=== PATIENT | male | born 1935 | race Caucasian/White ===

== ENCOUNTER 2018-12-18 04:41 | Observation (INO) | payer OTHER ==
[~2018-12-18] VITALS: Ht 185.4 cm; Wt 88.2 kg
--- NOTE | ~2018-12-18 | OP ---
PATIENT NAME: JESUS GIORDANO MEDICAL RECORD: [id number] :39 LOCATION:D.M2 D.2121 ADMISSION DATE:12/18/18 SURGEON: NATALIA SOARES MD DATE OF OPERATION: 12/20/2018 PROCEDURES: 1. Aortofemoral runoff. 2. Abdominal aortography. INDICATION: Claudication and peripheral vascular disease. PROCEDURE PERFORMED: After informed consent was obtained and after a detailed description of risks, benefits as well as alternative therapies, the patient elected to proceed with angiogram and aortofemoral runoff. The left femoral area had a preexisting sheath. All catheters exchanged through this sheath. FINDINGS: Abdominal aortography was performed. The catheter was pulled down for aortofemoral runoff. Abdominal aortography reveals no significant abdominal aortic disease, no dissection or aneurysm formation. RIGHT LEG: A. Iliac: The common internal and external iliacs have mild irregularities, but no flow-limiting stenosis. 2. Femoral system: The common superficial and deep femoral have mild irregularities, but no flow-limiting stenosis. C. Popliteal and infrapopliteal vessels are widely patent with good 3-vessel runoff to the foot. LEFT LEG: A. Iliac: The common internal and external iliacs have mild irregularities. B. Femoral system: The common and deep femoral are widely patent. Superficial femoral has 80% stenosis in mid vessel. C. Popliteal and infrapopliteal vessels are widely patent with good 3-vessel runoff to the foot. 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 TRANSINT:[id number] Voice Confirmation ID: [id number] DOCUMENT ID: [id number] NATALIA SOARES MD CC: [id number] DICTATION DATE: 12/20/18936 SUPERVISOR AREA: 12/20/18 1225 ADM IN [id number] [place] [address]
--- NOTE | ~2018-12-18 | EC ---
PATIENT:JESUS GIORDANO DATE OF SERVICE: 12/18/18 SEX: M MEDICAL RECORD: [id number] DATE OF : 39 LOCATION:D.M2 D.212 AGE OF PATIENT: 83 ADMISSION DATE: 12/18/18 REFERRING PHYSICIAN: INTERPRETING PHYSICIAN: NATALIA MENDEZ MD ECHOCARDIOGRAM REPORT ECHO CHARGES 4 ECHO COMPLETE Date: 12/18/18 CLINICAL DIAGNOSIS: PR ECHOCARDIOGRAPHIC MEASUREMENTS (adult normal given) AC root (d.<3.7cm) 3.5 cm LV Septum d (<1.2 cm> 1.3 cm Valve Excursion 1.4 cm LV Septum (systole) 1.7 cm Left Atria (s.<4.0cm> 3.9 cm LVPW d(<1.2cm) 1.5 cm RV (d.<2.3cm) 2.5 cm LVPW (sytole) 1.7 cm LV diastole(<5.6CM) 5.8 cm MV E-F(>70mm/sec) cm LV systole 4.9 cm LVOT Diameter 1.6 cm MV exc.(>10mm) cm Est.ejection fraction (50-75%) % DOPPLER: LVIT cm/sec A 79 cm/sec E 65 cm/sec LA cm/sec RVSP 16.2 mmHg LVOT 59 cm/sec AOP1/2T m/s Asc. Ao 103 cm/sec RVOT 59 cm/sec RA cm/sec PA 55 cm/sec AV Gradient Peak 4.2 mmHg AV Mean 2.5 mmHg AV Area 1.2 cm MV Gradient Peak 2.3 mmHg MV Mean 1.1 mmHg MV Area cm COMMENTS: Service Line Coordinator: [facility] Office Services Manager: 1 Dr. Mendez TAPE# PACS Pericardial Effusion N DATE OF SERVICE: FINDINGS: 1. Left ventricular chamber size is within normal limits. Left ventricular systolic function is normal. Overall ejection fraction is estimated at 50%. 2. Left atrium is within normal limits. Right atrium and right ventricular chamber sizes are mildly dilated. 3. Valvular structures have normal structure and motion. 4. Doppler interrogation reveals mild aortic insufficiency and mild mitral regurgitation. No other valvular insufficiency or stenosis. ECHOCARDIOGRAM REPORT [id number] JESUS GIORDANO 5. No evidence of pericardial effusion. 6. Left ventricular apex has a definite thrombus. TRANSINT:[id number] Voice Confirmation ID: [id number] DOCUMENT ID: [id number] NATALIA MENDEZ MD CC: [id number] DICTATION DATE: 12/18/18 1146 ENGINEER AND GEOLOGIST: 12/18/18 1214 ADM IN [place] [place] [address]
--- NOTE | ~2018-12-18 | HP ---
PATIENT: JESUS GIORDANO MEDICAL RECORD: [id number] ACCOUNT: [id number] LOCATION:[address] : 39 ADMISSION DATE: 12/18/18 PCP: SUSIE DELEON MD HISTORY AND PHYSICAL EXAMINATION DIAGNOSES: 1. Non-Q-wave myocardial infarction. 2. Coronary artery disease. 3. Hypertension. 4. Hyperlipidemia. HISTORY OF PRESENT ILLNESS: Mr. Giordano presents with chest pain. He presented to [facility] with chest pain 1 month ago, underwent cardiac catheterization by Dr. Tenorio, was told that he needs bypass surgery. No stenting was attempted. He saw Dr. Hunt. He was somehow turned down for bypass surgery. There was a question of whether he was afebrile at that time. He has continued to have chest pain. He presents here in the middle of the night with severe chest pain. His troponin is approximately 3. He is pain free at this time. PHYSICAL EXAMINATION: GENERAL APPEARANCE: Well-nourished, well-developed, appears stated age. Level of distress, comfortable. PSYCHIATRIC: Mental status, alert, normal affect. Orientation, oriented to time, place and person. EYES: Lids and conjunctiva, noninjected. No discharge, no pallor. ENT: Lips, teeth, gums, normal dentition. Oropharynx, no cyanosis, no pallor. NECK: Carotid arteries, bilateral normal upstroke, no bruits, no thrills. JUGULAR VEINS: No jugular venous pressure or distention. CERVICAL LYMPH NODES: Nontender, nonenlarged. THYROID: Not enlarged. Nontender. No nodules. LUNGS: Respiratory effort, unlabored. CHEST: Normal curvature. No thoracic deformity. No chest wall tenderness. Percussion, resonant. Auscultation, clear. No wheezes, no rales, no rhonchi. CARDIOVASCULAR: Precordial exam, nondisplaced. No heaves or pericardial thrills. Rate and rhythm, regular. Heart sounds, normal S1, normal S2. No S3, no gallop, no rub. Systolic murmur, not heard. Diastolic murmur, not heard. EXTREMITIES: No cyanosis, no edema. Peripheral pulses, full and equal in all extremities, except as noted. No bruits appreciated. ABDOMEN: Soft, nondistended. Normal aorta. No bruit. Nontender. No masses. Liver, nontender, no hepatomegaly. Spleen, nontender, no splenomegaly. MUSCULOSKELETAL: No joint tenderness. No joint swelling. No erythema. NEUROLOGICAL: Normal gait, normal strength, normal tone. SKIN: Warm and dry. OVERALL IMPRESSION: Non-Q-wave myocardial infarction and coronary artery disease. He wants to avoid heart surgery if at all possible. We will plan for repeat cardiac catheterization with hopes of transcatheter revascularization here. TRANSINT:[id number] Voice Confirmation ID: [id number] DOCUMENT ID: [id number] HISTORY AND PHYSICAL [id number] JESUS GIORDANO JEFFREY MD CC: [id number] DICTATION DATE: 12/18/18755 MEDICAL CENTER DIRECTOR: 12/18/18 0818 ADM IN [facility] [address] [id number]
--- NOTE | ~2018-12-18 | HEMODYNAMI ---
PATIENT:JESUS GIORDANO MEDICAL RECORD: [id number] : 39 LOCATION[facility] [id number] ADMISSION DATE: 12/18/18 Generatedon:12/20/20189:38 Patient name: JESUS GIORDANO Patient #: [id number] SSN: : 1935 Date of study: 12/20/2018 Page: Of Hemodynamic Procedure Report Patient Data Patient Demographics Procedure consent was obtained First Name: JESUS Gender: Male Last Name: GIULIANA : 1935 [facility] Initial: Arvin Age: 83 year(s) Patient #: [id number] Race: Unknown Additional ID: [id number] Contact details Address: [address] [place] [address] [facility] State: [place] City: [place] Zip code: [address] Past Medical History Allergies: No known allergies Admission Admission Data Admission Date: 12/18/2018 Admission Time: 6:16 Room #: D.2121 Height (in.): 73 BSA: 2.37 (m2) Height (cm.): 185.42 BMI: 33.04 (kg/m2) Weight (lbs.): 250.45 Weight (kg.): 113.6 Lab Results Lab Result Date: 12/20/2018 Lab Result Time: 0:00 Biochemistry Name Units Result Min Max BUN mg/dl 19 --(----)*- 7 18 Creatinine mg/dl 2.2 --(----)-* 0.6 1.3 CBC Name Units Result Min Max Hematocrit % 40.2 -*(----)-- 42 54 Hemoglobin g/dl 13.2 -*(----)-- 13.5 17.5 Procedure Procedure Types Cath Procedure PCI Procedure Coronary Stent Coronary Stent Initial Peripheral Cath Diagnostic Procedure Commercial Lending Assistant Peripheral Procedures Etnww-Olfaigk-Oqf-Off Procedure Description Procedure Date Procedure Date: 12/20/2018 Procedure Start Time: 9:23 Procedure End Time: 9:34 Procedure Staff Name Function Fran Mendez MD Performing Physician Kristian Rodriguez RT Monitor Trina Wiley RT Scrub Krishan Lao RN Nurse Kenan Hunt RN Avionics Technician Tam Gomes RN Nurse Procedure Data Cath Procedure Fluoroscopy Diagnostic fluoroscopy Total fluoroscopy Time: 2.3 time: 2.3 min min Diagnostic fluoroscopy Total fluoroscopy dose: 460 dose: 460 mGy mGy Contrast Material Contrast Material Type Amount (ml) Isovue 300 65 Entry Location Entry Primary Successful Side Size Upsize Upsize Entry Closure Succes sful Closure Location (Fr) 1 (Fr) 2 (Fr) Remarks Device Remarks Femoral Left 6 Fr Exoseal artery Short Estimated blood loss: 10 ml Diagnostic catheters Device Type Used For End Catheter Placement DIAGNOSTIC Pigtail 5Fr Procedure catheter ([id number]) Procedure Complications No complications Procedure Medications Medication Administration Route Dosage 0.9% NaCl I.V. 100 ml/hr Oxygen etCO2 Nasal cannula 4 l/min Heparin Flush Bag added to field 2 bags (1000units/500ml NS) Lidocaine 2% added to field 20 Plavix P.O. 75 mg Versed I.V. 0.5 mg Fentanyl I.V. 50 mcg Heparin Bolus I.V. 4000 units Hemodynamics Rest BSA: 2.37 (m2) HGB: 13.2 (g/dl) O2 Consumption: Estimated: 276.27 (ml/min) O2 Co nsumption indexed: Estimated:116.57 (ml/min/m) Heart Rate: 77 (bpm) Snapshots Pre Cath Intra NCS Post Cath Vital Signs Time Heart Resp SPO2 etCO2 NIBP (mmHg) Rhythm Pain Sedation Rate (ipm) (%) (mmHg) Status Level (bpm) 8:58:49 68 16 91 0 171/94(147) NSR 0 (11) 10(A) , No pain 9:03:05 79 18 90 22.7 164/102(137) NSR 0 (11) 10(A) , No pain 9:07:19 78 19 92 12.1 164/98(144) NSR 0 (11) 10(A) , No pain 9:11:33 76 18 92 0 174/97(138) NSR 0 (11) 10(A) , No pain 9:15:51 77 21 93 10.6 167/98(136) NSR 0 (11) 10(A) , No pain 9:20:07 78 22 92 10.5 169/99(146) NSR 0 (11) 10(A) , No pain 9:24:23 75 21 91 9.8 167/93(141) NSR 0 (11) 10(A) , No pain 9:28:39 74 32 92 0 165/111(141) NSR 0 (11) 9(A) , No pain 9:32:55 75 19 90 0 172/93(141) NSR 0 (11) 9(A) , No pain Medications Time Medication Route Dose Verified Delivered Reason Notes Effectiveness by by 9:02:47 0.9% NaCl I.V. 100 Tam Tam Per physician ml/hr Mireya Gomes RN RN 9:03:01 Oxygen etCO2 4 Tam Tam for low 02 sats Nasal l/min Mireya Gomes cannula RN RN 9:03:11 Heparin Flush added 2 Tam Tam used for Bag to bags Mireya Gomes procedure (1000units/500ml RN RN NS) 9:03:22 Lidocaine 2% added 20ml Tam Tam for local to vial Mireya Gomes anesthetic field RN RN 9:09:41 Plavix P.O. 75 mg Tam Tam for Mireya Gomes antiplatelet RN RN therapy 9:19:41 Versed I.V. 0.5 Tam Tam for sedation mg Mireya Gomes RN RN 9:19:50 Fentanyl I.V. 50 Tam Tam for sedation mcg Mireya Gomes RN RN 9:24:49 Heparin Bolus I.V. 4000 Tam Tam for units Mireya Gomes anticoagulation RN graduate student instructor Log Time Note 8:25:45 Signed procedure consent form obtained from patient. 8:25:47 Diagnostic Cath status Elective 8:25:47 Time tracking: Regular hours (M-F 7:00 - 5:00) 8:25:51 Plan of Care:Hemodynamics will remain stable., Cardiac rhythm will remain stable., Comfort level will be maintained., Respiratory function will remain adequate., Patient/ family verbilizes understanding of procedure., Procedure tolerated without complication., Recovers from procedure without complications.. 8:26:04 Patient Height : 73 inches 8:26:13 Patient Weight : 250.45 lbs 8:27:01 Lab Result : BUN 19 mg/dl 8:27:01 Lab Result : Creatinine 2.2 mg/dl 8:27:01 Lab Result : Hematocrit 40.2 % 8:27:01 Lab Result : Hemoglobin 13.2 g/dl 8:36:15 Kristian Jennifer RT(R) sent for patient. Start room use. 8:37:17 Patient allergic to No known allergies 8:46:19 Patient received from Med II to CCL 2 Alert and oriented. Tansferred to table in Supine position. 8:46:21 Warm blankets applied, and ashish hugger turned on for patient comfort. 8:46:22 Correct patient and procedure confirmed by team. 8:46:23 ECG and BP/O2 sat monitors applied to patient. 8:57:43 Vital chart was started 9:02:47 0.9% NaCl 100 ml/hr I.V. was administered by Tam Gomes RN; Per physician; 9:03:01 Oxygen 4 l/min etCO2 Nasal cannula was administered by Tam Gomes RN; for low 02 sats; 9:03:11 Heparin Flush Bag (1000units/500ml NS) 2 bags added to field was administered by Tam Gomes RN; used for procedure; 9:03:22 Lidocaine 2% 20ml vial added to field was administered by aTm Gomes RN; for local anesthetic; 9:06:40 Baseline sample Acquired. 9:06:48 Rhythm: sinus rhythm 9:06:50 Full Disclosure recording started 9:07:08 H&P Date Dictated: 12/18/2018 Within 30 days and on chart.. 9:07:10 Pre-procedure instructions explained to patient. 9:07:10 Pre-op teaching completed and patient verbalized understanding. 9:07:11 Family in patients room. 9:07:14 Patient NPO since Midnight. 9:07:18 Is the patient allergic to Iodine/contrast media? No. 9:07:19 Is patient on blood thinner?Yes 9:07:21 ACC The patient was administered the following blood thiners within the last 24 hours: ACCPlavix 9:07:28 Patient diabetic? No. 9:07:30 Previous problem with sedation/anesthesia? No ? 9:07:31 Snore? Yes 9:07:32 Sleep apnea? No 9:07:33 Deviated septum? No 9:07:34 Opens mouth fully? Yes 9:07:35 Sticks out tongue? Yes 9:07:37 Airway obstruction? No ? 9:07:40 Dentures? Yes IN TIGHT 9:07:44 Pre procedure: left dorsailis pedis pulse Doppler 9:07:46 Patient pain scale 0/10 ?. 9:07:51 IV patent on arrival in right antecubital with 0.9% NaCl at [facility]. 9:07:53 Lab results completed and on chart. 9:07:56 Left groin area was prepped with chlora-prep and draped in sterile fashion 9:07:56 Alarms reviewed by R. N. 9:07:57 Sharps counted by scrub and verified by R.N. 9:08:00 ACIST Syringe (88038) opened to sterile field. 9:08:00 Bag Decanter (2002S) opened to sterile field. 9:08:00 Medline Cath Pack ([id number]) opened to sterile field. 9:08:02 ACIST Hand Control (74319) opened to sterile field. 9:08:02 ACIST Manifold (53099) opened to sterile field. 9:08:03 Tegaderm 4 x 4 (1626W) opened to sterile field. 9:08:05 DIAGNOSTIC WIRE .035 260cm J wire (702468) opened to sterile field. 9:08:20 CHOICE PT Extra Support 182cm wire ([id number]) opened to sterile field. 9:08:21 SHEATH 6FR Chicken (WAJ438) opened to sterile field. 9:08:21 INFLATOR Merit BasixCompak (RY7974) opened to sterile field. 9:09:41 Plavix 75 mg P.O. was administered by Tam Gomes RN; for antiplatelet therapy; 9:11:08 Zero performed for pressure channel P1 9:19:08 Physician arrived 9:19:09 --------ALL STOP TIME OUT------ 9:19:10 Final Timeout: patient, procedure, and site verified with staff and physician. All members of the team are in agreement. 9:19:13 Left groin site verified by team. 9:19:18 Maximum allowable Isovue 300 dose 258ml. Physician notified. (300ml for normal creatinines. For patients with creatinine of 1.7 or higher multiply weight(kg) x 5 divided by creatinine.) 9:19:21 Fire Safety Assessment: A--An alcohol-based skin anteseptic being used preoperatively., C--Open oxygen or nitrous oxide is being used., D--An ESU, laser, or fiber-optic light is being used. 9:19:32 Physical assessment completed. ASA score P 3 - A patient with severe systemic disease as per Fran Mendez MD. 9:19:41 Versed 0.5 mg I.V. was administered by Tam Gomes RN; for sedation; 9::50 Fentanyl 50 mcg I.V. was administered by Tam Gomes RN; for sedation; 9::55 Procedure started. 9::59 Local anesthetic to left femerol artery with Lidocaine 2% by Fran Mendez MD.INITIAL ACCESS ONLY 9:24:06 A 6 Fr Short sheath was inserted into the Left Femoral artery 9:24:49 Heparin Bolus 4000 units I.V. was administered by Tam Gomes RN; for anticoagulation; 9::53 GUIDE 6FR XBLAD 3.5 catheter ([id number]) opened to sterile field. 9:25:01 6 Fr XBLAD 3.5 guide catheter was inserted over the wire 9:26:48 CHOICE PT ES wire advanced. 9:27:36 Wire advanced across lesion. 9:28:33 Place stent Inflation Number: 1 A INTEGRITY RX 2.5 x 22 stent ([id number]) was prepped and advanced across the Prox LAD. The stent was deployed at 15 SUSHANT for 0:10 (min:sec). 9:28:54 Stent catheter was removed intact over wire. 9::55 Wire removed. 9:30:10 Guide catheter removed. 9:30:20 A DIAGNOSTIC Pigtail 5Fr catheter ([id number]) was advanced over the wire and used for Procedure. 9:30:31 Abdominal angiogram w/ runoff was performed. 9:31:09 Left leg runoff performed. 9:31:09 Right leg runoff performed. 9:31:12 Catheter removed. 9:31:42 EXOSEAL 6Fr (EX600) opened to sterile field. 9:31:51 Sheath removed intact; hemostasis achieved with Exoseal to the Left Femoral artery. 9:31:52 Procedure ended.(Physican Out) 9:32:01 Fluoroscopy time 02.30 minutes. 9:32:04 Flurop Dose total: 460 9:32:04 Fluoroscopy dose: 460 mGy 9:32:08 Contrast amount:Isovue 300 65ml. 9:32:09 Sharps counted by scrub and verified by R.N. 9:32:10 Insertion/operative site no bleeding no hematoma. 9:32:13 Post-op/insertion site Left Femoral artery dressed using a 4 x 4 and Tegaderm. 9:32:17 Post left femerol artery:stable, soft, clean and dry 9:32:18 Post Procedure Pulses reassessed and unchanged 9:32:20 Post-procedure physical assessment completed. ASA score P 3 - A patient with severe systemic disease as per Fran Mendez MD. 9:32:22 Post procedure rhythm: unchanged. 9:32:24 Estimated blood loss: 10 ml 9:32:25 Post procedure instruction explained to patient.Patient verbalizes understanding. 9:32:26 Patient needs reinforcement of post procedure teaching. 9:33:32 Procedure type changed to Cath procedure, PCI procedure, Coronary Stent, Coronary Stent Initial, Peripheral Cath Diagnostic Procedure, Commercial Lending Assistant Peripheral Procedures, Djybu-Wbkxwht-Pmt-Off 9:34:08 Procedure and supply charges have been captured, reviewed, submitted and are correct. 9:34:13 Procedure Complication : No complications 9:34:16 Vital chart was stopped 9:34:16 See physician's report for complete and final results. 9:34:28 Report given to PCU. 9:34:32 Patient transfered to PCU with Stretcher. 9:34:37 Procedure ended. 9:34:37 Full Disclosure recording stopped 9:34:43 End room use (Document Last) Intervention Summary Intervention Notes Time ActionType Lesion and Equipment Action# Pressure Duration Attributes Used 9:28:33 Place stent Prox LAD INTEGRITY RX 1 15 00:10 2.5 x 22 stent ([id number]) Device Usage Item Name Manufacture Quantity Catalog Number Hospital Part Current Mini [facility] Lot# / Charge Number Stock Stock Serial# Code ELAINA Acist 1 79298 379950 926082 893187 20 Syringe Medical (51897) Systems Inc Bag Decanter Microtek 1 952624 05189 267520 5 () Medical Inc. Medline Cath Medline 1 [id number] 305455 65123 771273 5 Pack ([id number]) ACIST Hand Acist 1 97631 931511 252315 942571 5 Control Medical (89469) Systems Inc ACIST Acist 1 96967 700792 950468 687880 5 Manifold Medical (14248) Systems Inc Tegaderm 4 x 3M 1 1626W 201792 270407 340484 5 4 (1626W) DIAGNOSTIC [facility] 1 610026 898876 869790 726642 30 WIRE .035 260cm J wire (393619) CHOICE PT [place] 1 [id number] 575502 608467 722607 5 Extra Scientific Support 182cm wire (3252742H2) SHEATH 6FR Terumo 1 [id number] 962329 054013 408189 40 Chicken (OQJ503) INFLATOR Merit 1 XY2930 308210 362870 616655 15 [facility] Medical BasixCompak (PQ2150) GUIDE 6FR Cardinal 1 [id number] 489214 356354 362368 10 XBLAD 3.5 Health catheter ([id number]) INTEGRITY RX Medtronic 1 [id number] 890729 142678 360339 5 [id number] 2.5 x 22 stent ([id number]) DIAGNOSTIC Cardinal 1 [id number] 753960 903593 281746 5 Pigtail 5Fr Health catheter (271586B) EXOSEAL 6Fr Cardinal 1 EX600 925940 984595 541260 10 (EX600) Health Signature Audit [place] Stage Time Signature Unsigned Intra-Procedure 12/20/2018 Kristian Rodriguez 9:38:43 AM RT(R) Signatures Monitor : Kristian Rodriguez RT Signature : Date : Time : [facility] [address] [place] [address]
--- NOTE | ~2018-12-18 | HEMODYNAMI ---
PATIENT:JESUS GIORDANO MEDICAL RECORD: [id number] : 39 [facility] [id number] ADMISSION DATE: 12/18/18 Generatedon:12/18/201813:32 Patient name: JESUS GIORDANO Patient #: [id number] SSN: : 1935 Date of study: 12/18/2018 Page: Of Hemodynamic Procedure Report Patient Data Patient Demographics Procedure consent was obtained First Name: JESUS Gender: Male Last Name: GIULIANA : 1935 [facility] Initial: G Age: 83 year(s) Patient #: [id number] Race: Unknown Additional ID: [id number] Contact details Address: [address] [place] [address] [facility] State: [place] City: [place] Zip code: [address] Past Medical History Allergies: No known allergies Admission Admission Data Admission Date: 12/18/2018 Admission Time: 6:16 Room #: D.2121 Lab Results Lab Result Date: 12/18/2018 Lab Result Time: 0:00 Biochemistry Name Units Result Min Max BUN mg/dl 20 --(----)*- 7 18 Creatinine mg/dl 2.1 --(----)-* 0.6 1.3 CBC Name Units Result Min Max Hemoglobin g/dl 13.5 --(*---)-- 13.5 17.5 Procedure Procedure Types Cath Procedure Diagnostic Procedure [facility] w/Coronaries PCI Procedure Coronary Stent Coronary Stent Initial Procedure Description Procedure Date Procedure Date: 12/18/2018 Procedure Start Time: 12:52 Procedure End Time: 13:27 Procedure Staff Name Function Pablo Aguillon RT Scrub Fran Mendez MD Performing Physician Pancho Summers RT Monitor Ayesha Evans RN Nurse Procedure Data Cath Procedure Fluoroscopy Diagnostic fluoroscopy Total fluoroscopy Time: time: 14.7 min 14.7 min Diagnostic fluoroscopy Total fluoroscopy dose: dose: 1517 mGy 1517 mGy Contrast Material Contrast Material Type Amount (ml) Isovue 300 199 Entry Location Entry Primary Successful Side Size Upsize Upsize Entry Closure Call ccessful Closure Location (Fr) 1 (Fr) 2 (Fr) Remarks Device Remarks Radial Right 6 Fr Mechanical artery Short Compression Femoral Right 6 Fr Exoseal artery Short Diagnostic catheters Device Type Used For End Catheter Placement DIAGNOSTIC [place] 110cm 5 Left Coronary Fr catheter ([id number]) Angiography DIAGNOSTIC AR2 MOD 5 Fr Right Coronary catheter ([id number]) Angiography DIAGNOSTIC AR2 MOD 5 Fr Right Coronary catheter ([id number]) Angiography Procedure Complications No complications Procedure Medications Medication Administration Route Dosage 0.9% NaCl I.V. 100 ml/hr Oxygen etCO2 Nasal cannula 2 l/min Lidocaine 2% added to field 20 Heparin Flush Bag added to field 2 bags (1000units/500ml NS) Radial Cocktail added to field 1 syringe (Verapomil 2mg/Nitro 400mcg/Heparin 1500units) Versed I.V. 2 mg Fentanyl I.V. 50 mcg Fentanyl I.V. 50 mcg Versed I.V. 2 mg Heparin Bolus I.V. 4000 units Integrilin (Bolus I.V. 10.2 ml 2mg/ml) Plavix P.O. 600 mg Hemodynamics Rest HGB: 13.5 (g/dl) Heart Rate: 76 (bpm) Pressure Samples Time Site Value (mmHg) Purpose Heart Use Rate(bpm) 12:55 LV 130/25,18 EDP 74 12:56 AO 138/79(106) Pullback 74 Gradients Valve Time Site Site 2 Mean SEP/DFP Peak To Heart Use 1 (mmHg) (sec/min) Peak Rate (mmHg) (bpm) Aortic 12:56 LV AO 74 138/79(106) Snapshots Pre Cath Intra NCS Post Cath Vital Signs Time Heart Resp SPO2 etCO2 NIBP (mmHg) Rhythm Pain Sedation Rate (ipm) (%) (mmHg) Status Level (bpm) 12:39:29 76 15 96 11 168/90(148) NSR 0 (11) 10(A) , No pain 12:43:54 73 14 98 13.6 162/97(134) NSR 0 (11) 10(A) , No pain 12:48:14 74 19 98 10.5 152/90(133) NSR 0 (11) 10(A) , No pain 12:52:34 72 15 97 14.3 160/93(134) NSR 0 (11) 10(A) , No pain 12:56:54 72 11 96 26 142/88(109) NSR 0 (11) 10(A) , No pain 13:01:12 74 11 97 29.5 151/90(120) NSR 0 (11) 9(A) , No pain 13:05:34 68 12 96 31.7 152/80(117) NSR 0 (11) 9(A) , No pain 13:09:52 67 11 97 43.1 155/89(122) NSR 0 (11) 9(A) , No pain 13:14:10 70 12 96 15.1 155/89(130) NSR 0 (11) 9(A) , No pain 13:18:29 75 14 96 27.2 144/86(119) NSR 0 (11) 9(A) , No pain 13:23:40 72 13 98 30.2 156/78(125) NSR 0 (11) 10(A) , No pain Medications Time Medication Route Dose Verified Delivered Reason Not es Effectiveness by by 12:38:21 0.9% NaCl I.V. 100 Fran Ayesha used for ml/hr Andrea Evans instructional systems specialist 12:38:28 Oxygen etCO2 2 l/min Fran Ayesha used for Nasal Andrea Evans procedure cannula RN 12:38:33 Lidocaine 2% added 20ml Fran Peters for local to vial Andrea Mendez MD anesthetic field 12:38:37 Heparin Flush added 2 bags Fran Peters used for Bag to Andrea Mendez MD procedure (1000units/500ml field NS) 12:38:48 Radial Cocktail added 1 Fran Peters used for (Verapomil to syringe Andrea Mendez MD procedure 2mg/Nitro field 400mcg/Hepari 12:49:49 Versed I.V. 2 mg Fran Ayesha for sedation Andrea Evans RN 12:49:55 Fentanyl I.V. 50 mcg Fran Ayesha for sedation Andrea Evans RN 12:58:11 Versed I.V. 2 mg Fran Ayesha for sedation Andrea Evans RN 12:58:49 Fentanyl I.V. 50 mcg Fran Ayesha for sedation Andrea Evans RN 13:20:26 Heparin Bolus I.V. 4000 Fran Ayesha for shital ified units Andrea Evans anticoagulation with Dr. DANIEL Mendez 13:20:42 Integrilin I.V. 10.2 ml Fran madrigal (Bolus 2mg/ml) Andrea Evans antiplatelet RN therapy 13:28:24 Plavix P.O. 600 mg Fran Hodge for Andrea Evans antiplatelet RN therapy Procedure Log Time Note 12:12:40 Pablo Aguillon RT(R) sent for patient. Start room use. 12:12:42 Time tracking: Regular hours (M-F 7:00 - 5:00) 12:12:46 Plan of Care:Hemodynamics will remain stable., Cardiac rhythm will remain stable., Comfort level will be maintained., Respiratory function will remain adequate., Patient/ family verbilizes understanding of procedure., Procedure tolerated without complication., Recovers from procedure without complications.. 12:28:21 Patient received from PCU to CCL 1 Alert and oriented. Tansferred to table in Supine position. 12:28:22 Warm blankets applied, and ashish hugger turned on for patient comfort. 12:28:23 Correct patient and procedure confirmed by team. 12:28:24 ECG and BP/O2 sat monitors applied to patient. 12:28:24 Signed procedure consent form obtained from patient. 12:38:12 Vital chart was started 12:38:21 0.9% NaCl 100 ml/hr I.V. was administered by Ayesha Evans RN; used for procedure; 12:38:28 Oxygen 2 l/min etCO2 Nasal cannula was administered by Ayesha Evans RN; used for procedure; 12:38:33 Lidocaine 2% 20ml vial added to field was administered by Fran Mendez MD; for local anesthetic; 12:38:37 Heparin Flush Bag (1000units/500ml NS) 2 bags added to field was administered by Fran Mendez MD; used for procedure; 12:38:48 Radial Cocktail (Verapomil 2mg/Nitro 400mcg/Heparin 1500units) 1 syringe added to field was administered by Fran Mendez MD; used for procedure; 12:45:33 Baseline sample Acquired. 12:45:36 Rhythm: sinus rhythm 12:45:37 Full Disclosure recording started 12:46:06 H&P Date Dictated: 12/18/2018 Within 30 days and on chart.. 12:46:07 Pre-procedure instructions explained to patient. 12:46:08 Pre-op teaching completed and patient verbalized understanding. 12:46:09 Family in patients room. 12:46:11 Patient NPO since Midnight. 12:46:21 Patient allergic to No known allergies 12:46:26 Is the patient allergic to Iodine/contrast media? No. 12:46:28 Was the patient premedicated? No 12:46:29 Is patient on blood thinner?No 12:46:34 Patient diabetic? Yes. 12:46:36 If diabetic: On Metformin? No 12:46:38 ----Pre-sedation anethsthesia assessment.---- 12:46:40 Previous problem with sedation/anesthesia? No ? 12:46:41 Snore? Yes 12:46:42 Sleep apnea? No 12:46:44 Deviated septum? No 12:46:45 Opens mouth fully? Yes 12:46:46 Sticks out tongue? Yes 12:46:49 Airway obstruction? No ? 12:46:53 Dentures? Yes in tight 12:47:00 Pre procedure: right dorsailis pedis pulse 1+ Palpable, but thready & weak; easily obliterated 12:47:08 Modified Aston's test Ulnar < 7 seconds 12:47:11 Patient pain scale 0/10 ?. 12:47:25 IV patent on arrival in left antecubital with 0.9% NaCl at 10ml/hr. 12:48:11 Lab Result : BUN 20 mg/dl 12:48:12 Lab Result : Hemoglobin 13.5 g/dl 12:48:12 Lab Result : Creatinine 2.1 mg/dl 12:48:14 Lab results completed and on chart. 12:48:19 Right Radial & Right Groin area was prepped with chlora-prep and draped in sterile fashion 12:48:20 Alarms reviewed by R. N. 12:48:21 Sharps counted by scrub and verified by R.N. 12:48:22 Physician arrived 12:48:23 --------ALL STOP TIME OUT------ 12:48:27 Final Timeout: patient, procedure, and site verified with staff and physician. All members of the team are in agreement. 12:48:30 Right Radial & Right Groin site verified by team. 12:48:38 Maximum allowable Isovue 300 dose ?ml. Physician notified. (300ml for normal creatinines. For patients with creatinine of 1.7 or higher multiply weight(kg) x 5 divided by creatinine.) 12:48:45 Fire Safety Assessment: A--An alcohol-based skin anteseptic being used preoperatively., C--Open oxygen or nitrous oxide is being used., D--An ESU, laser, or fiber-optic light is being used. 12:48:50 Physical assessment completed. ASA score P 2 - A patient with mild systemic disease as per Fran Mendez MD. 12:48:54 Sedation plan: IV Moderate Sedation Medication:Versed, Fentanyl 12:49:33 Use device set Radial Dx or PCI 12:49:34 ACIST Syringe (08043) opened to sterile field. 12:49:35 DIAGNOSTIC WIRE .035 260cm J wire (772300) opened to sterile field. 12:49:35 Bag Decanter (2002S) opened to sterile field. 12:49:35 Medline Cath Pack ([id number]) opened to sterile field. 12:49:36 ACIST Manifold (38310) opened to sterile field. 12:49:36 ACIST Hand Control (45850) opened to sterile field. 12:49:37 Tegaderm 4 x 4 (1626W) opened to sterile field. 12:49:39 MBrace Wrist Support (478252405) opened to sterile field. 12:49:44 TR BAND Standard ([id number]) opened to sterile field. 12:49:46 SHEATH 6FR Slender (801060) opened to sterile field. 12:49:49 Procedure started. 12:49:49 Versed 2 mg I.V. was administered by Ayesha Evans RN; for sedation; 12:49:55 Fentanyl 50 mcg I.V. was administered by Ayesha Evans RN; for sedation; 12:52:00 Local anesthetic to right radial artery with Lidocaine 2% by Fran Mendez MD.INITIAL ACCESS ONLY 12:52:12 A 6 Fr Short sheath was inserted into the Right Radial artery 12:53:06 Zero performed for pressure channel P1 12:53:09 Zero performed for pressure channel P1 12:53:11 Zero performed for pressure channel P1 12:53:14 Zero performed for pressure channel P1 12:53:18 Zero performed for pressure channel P1 12:53:53 A DIAGNOSTIC [place] 110cm 5 Fr catheter (105050) was advanced over the wire and used for Left Coronary Angiography. 12:54:00 LCA angiography performed. 12:56:06 Catheter exchanged over wire. 12:56:27 A DIAGNOSTIC AR2 MOD 5 Fr catheter (768399L) was advanced over the wire and used for Right Coronary Angiography. 12:58:11 Versed 2 mg I.V. was administered by Ayesah Evans RN; for sedation; 12:58:49 Fentanyl 50 mcg I.V. was administered by Ayesha Evans RN; for sedation; 12:59:42 Catheter exchanged over wire. 12:59:48 Local anesthetic to right femoral artery with Lidocaine 2% by Fran Mendez MD.ADDITIONAL ACCESS 12:59:58 A 6 Fr Short sheath was inserted into the Right Femoral artery 13:01:31 A DIAGNOSTIC AR2 MOD 5 Fr catheter (851120A) was advanced over the wire and used for Right Coronary Angiography. 13:02:11 Catheter exchanged over wire. 13:02:23 GUIDE 6FR ALR1-2 catheter ([id number]) opened to sterile field. 13:03:35 SHEATH 6FR [place] (PEI055) opened to sterile field. 13:04:58 Catheter exchanged over wire. 13:07:25 GUIDE 6FR MB 1 catheter (LA6MB1) opened to sterile field. 13:07:29 Catheter exchanged over wire. 13:08:10 GUIDE 6FR AL 2.0 catheter (RG3JU03) opened to sterile field. 13:11:32 Catheter exchanged over wire. 13:11:41 GUIDE 6FR 3DRC catheter (VM31NXU) opened to sterile field. 13:13:25 Catheter exchanged over wire. 13:13:41 CHOICE PT Extra Support 182cm wire ([id number]) opened to sterile field. 13:14:29 INFLATOR Merit BasixCompak (IX5628) opened to sterile field. 13:14:55 cptes wire advanced. 13:18:53 Inflate balloon Inflation number: 1 A EUPHORA 2.0 x 20 Balloon ([id number]) was prepped and advanced across the Prox RCA, then inflated to 21 SUSHANT for 0:10 (min:sec). 13:18:59 Balloon removed over the wire. 13:20:26 Heparin Bolus 4000 units I.V. was administered by Ayesha Evans RN; for anticoagulation; verified with Dr. Mendez 13:20:42 Integrilin (Bolus 2mg/ml) 10.2 ml I.V. was administered by Ayesha Evans RN; for antiplatelet therapy; 13:20:50 Inflate balloon Inflation number: 2 A EUPHORA 3.5 x 20 Balloon ([id number]) was prepped and advanced across the Prox RCA, then inflated to 13 SUSHANT for 0:10 (min:sec). 13:21:04 Inflation number: 3 The EUPHORA 3.5 x 20 Balloon ([id number]) was reinflated across the Prox RCA, to 13 SUSHANT for 0:10 (min:sec). 13:21:40 Balloon removed over the wire. 13:23:05 Place stent Inflation Number: 4 A INTEGRITY 4.0 x 18 stent ([id number]) was prepped and advanced across the Prox RCA. The stent was deployed at 15 SUSHANT for 0:09 (min:sec). 13:23:28 Stent catheter was removed intact over wire. 13:23:29 Wire removed. 13:23:33 Guide catheter removed. 13:24:10 Sheath removed intact; hemostasis achieved with Mechanical Compression to the Right Radial artery. 13:24:16 Sheath removed intact; hemostasis achieved with Exoseal to the Right Femoral artery. 13:24:18 Procedure ended.(Physican Out) 13:25:32 Fluoroscopy time 14.70 minutes. 13:25:40 Fluoroscopy dose: 1517 mGy 13:25:40 Flurop Dose total: 1517 13:25:50 Contrast amount:Isovue 300 199ml. 13:25:52 Sharps counted by scrub and verified by R.N. 13:25:55 TR band inflated with 12cc of air. 13:25:58 Insertion/operative site no bleeding no hematoma. 13:26:07 Post-op/insertion site Right Femoral artery dressed using a 4 x 4 and Tegaderm. 13:26:12 Post right femoral artery:stable 13:26:19 Post procedure: right dorsailis pedis pulse 2+ Normal; easily identifiable; not easily obliterated. 13:26:23 Post procedure rhythm: sinus rhythm 13:26:26 Post procedure instruction explained to patient.Patient verbalizes understanding. 13:26:33 Procedure and supply charges have been captured, reviewed, submitted and are correct. 13:26:49 Procedure type changed to Cath procedure, Diagnostic procedure, LHC, C w/Coronaries, PCI procedure, Coronary Stent, Coronary Stent Initial 13:26:56 Procedure Complication : No complications 13:26:58 Vital chart was stopped 13:26:59 See physician's report for complete and final results. 13:27:01 Report given to PCU. 13:27:07 Patient transfered to PCU with Bed. 13:27:10 Full Disclosure recording stopped 13:27:10 Procedure ended. 13:27:16 ACC-PCI Only Patient was given prescriptions, or instructed by Fran Mendez MD to start/continue the following medications upon discharge: Plavix 13:27:18 End room use (Document Last) 13:28:24 Plavix 600 mg P.O. was administered by Ayesha Evans RN; for antiplatelet therapy; Intervention Summary Intervention Notes Time ActionType Lesion and Equipment Action# Pressure Duration Attributes Used 13:18:53 Inflate Prox RCA EUPHORA 2.0 1 21 00:10 balloon x 20 Balloon ([id number]) 13:20:50 Inflate Prox RCA EUPHORA 3.5 2 13 00:10 balloon x 20 Balloon ([id number]) 13:21:04 Reinflate Prox RCA EUPHORA 3.5 3 13 00:10 balloon x 20 Balloon ([id number]) 13:23:05 Place stent Prox RCA INTEGRITY 4 15 00:09 4.0 x 18 stent ([id number]) Device Usage Item Name Manufacture Quantity Catalog Number Hospital Part Current Mini [facility] Lot# / Charge Number Stock Stock Serial# Code ACIST Acist 1 79553 929634 631988 327211 20 Syringe Angiodroid (67093) Systems Inc Medline Cath Medline 1 [id number] 906192 40376 707006 5 Pack ([id number]) Bag Decanter Microtek 1 255471 56976 289385 5 () Medical Inc. DIAGNOSTIC [facility] 1 327963 987485 209800 092740 30 WIRE .035 260cm J wire (594095) ACIST Hand Acist 1 52122 942786 050589 335860 5 Control Medical (11121) Systems Inc ACIST Acist 1 88840 860740 159116 514441 5 Manifold Medical (76087) Systems Inc Tegaderm 4 x 3M 1 1626W 995426 707647 807531 5 4 (1626W) MBrace Wrist Advanced 1 140-0250-00 498294 00946 841913 5 Support Vascular (147487890) Dynamics TR BAND Terumo 1 QGW86-RKS 173899 169227 103709 40 Standard (TZR30UOT) SHEATH 6FR Terumo 1 [id number] 029545 931560 910701 5 Slender (80-1060) DIAGNOSTIC Terumo 1 40-5013 267444 291196 474953 5 [place] 110cm 5 Fr catheter (633102) DIAGNOSTIC Cardinal 1 108397B 268522 007735 805644 20 AR2 MOD 5 Fr Health catheter (558468J) GUIDE 6FR Medtronic 1 [id number] 512489 03385 835859 1 ALR1-2 catheter ([id number]) SHEATH 6FR Terumo 1 ZYF985 389075 050198 512677 40 [place] (HEP961) GUIDE 6FR MB Medtronic 1 LA6MB1 218468 28650 913751 1 1 catheter (LA6MB1) GUIDE 6FR AL Medtronic 1 RS7AI55 595713 99239 873250 1 2.0 catheter (TJ7ZD24) GUIDE 6FR Medtronic 1 PJ54JEX 746997 219928 162627 1 3DRC catheter (FL45FZO) CHOICE PT [place] 1 [id number] 077731 005367 713301 5 Extra Scientific Support 182cm wire (2538526G3) INFLATOR Merit 1 AJ7590 836361 560924 090810 15 SocialSci Medical BasixCompak (UW4343) EUPHORA 2.0 Medtronic 1 [id number] 719032 539597 288083 5 [id number] x 20 Balloon ([id number]) EUPHORA 3.5 Medtronic 1 [id number] 864161 814478 826523 5 [id number] x 20 Balloon (RIQ3487C) INTEGRITY Medtronic 1 [id number] 605193 267079 462922 5 [id number] 4.0 x 18 stent ([id number]) Signature Audit [place] Stage Time Signature Unsigned Intra-Procedure 12/18/2018 Pancho MERRILL(Isabella) 1:32:18 PM Signatures Monitor : Pancho Summers RT Signature : Date : Time : [place] [id number] [place] [id number]
--- NOTE | ~2018-12-18 | DS ---
PATIENT:JESUS GIORDANO :39 MEDICAL RECORD: [id number] DISCHARGE SUMMARY ADMISSION DATE: 12/18/18 DISCHARGE DATE: 12/21/18 DISCHARGE DIAGNOSES: 1. Unstable angina. 2. Coronary artery disease. 3. PTCA and stent of LAD and RCA this admission. 4. Hypertension. 5. Hyperlipidemia. HOSPITAL COURSE: Mr. Giordano presents with anginal symptomatology, found to have RCA and LAD disease. Underwent successful PTCA and stent of both territories. He was discharged home with the addition of Plavix and Coumadin to his medical regimen as he was found to have an LV thrombus as well. We will follow up with [facility] in 2 weeks for PT/INR. TRANSINT:[id number] Voice Confirmation ID: [id number] DOCUMENT ID: [id number] NATALIA SOARES MD CC: [id number] DICTATION DATE: 12/21/18 1335 BEVEL MILL OPERATOR: 12/22/18 0426 DIS IN 12/21/18 [place] [id number] [place] [id number]
--- NOTE | ~2018-12-18 | OP ---
PATIENT NAME: JESUS GIORDANO MEDICAL RECORD: [id number] :[birth year] LOCATION:D.M2 D.2121 ADMISSION DATE:12/18/18 SURGEON: NATALIA SOARES MD DATE OF OPERATION: 12/18/2018 DATE OF SERVICE: 12/18/2018 PROCEDURES: 1. PTCA stent RCA. 2. Left heart catheterization. 3. Selective coronary angiography. PROCEDURE IN DETAIL: After informed consent was obtained and after a detailed description of risks, benefits as well as alternative therapies, the patient elected to proceed with angiogram and angioplasty. The right femoral area was prepped and draped in normal sterile fashion. Right femoral artery was cannulated via modified Seldinger technique with placement of 6-Bengali sheath. All catheters exchanged through this sheath. FINDINGS: Left ventriculogram was performed in standard 30-degree NAVARRO view, reveals good cardiac wall motion throughout all segments. Overall ejection fraction estimated at 50%. SELECTIVE CORONARY ANGIOGRAPHY: 1. Left main is with no significant angiographic disease. 2. The left anterior descending has 90% stenosis at the ostium. 3. Left circumflex has moderate irregularities, but no flow-limiting stenosis. 4. Right coronary artery has 99% stenosis at the ostium. PTCA STENT OF THE RIGHT CORONARY: We are able to traverse this with a 2.0 and 3.5 balloon. Stenting it with 4.0 x 18 Integrity stent. Result was 0% residual stenosis. OVERALL IMPRESSION: Successful percutaneous transluminal coronary angioplasty stent of the right coronary artery going from 99% initial stenosis to 0% residual. PLAN: PTCA stent of the LAD in the near future. TRANSINT:[id number] Voice Confirmation ID: [id number] DOCUMENT ID: [id number] NATALIA SOARES MD CC: [id number] DICTATION DATE: 12/18/18 1329 TAMALE MAKER: 12/18/18 1428 ADM IN [facility] [address] [place] [address]
--- NOTE | ~2018-12-18 | OP ---
PATIENT NAME: JESUS GIORDANO MEDICAL RECORD: [id number] :[birth year] LOCATION:D.M2 D.2121 ADMISSION DATE:12/18/18 SURGEON: NATALIA SOARES MD DATE OF OPERATION: 12/20/2018 PROCEDURES: 1. PTCA stent LAD. 2. Selective coronary angiography. INDICATION: Angina and coronary artery disease. PROCEDURE IN DETAIL: After informed consent was obtained and after detailed description of risks, benefits as well as alternative therapies, the patient elected to proceed with angiogram and angioplasty. The right femoral area was prepped and draped in normal sterile fashion. Right femoral artery was cannulated via modified Seldinger technique with placement of 6-Equatorial Guine[place] sheath. All catheters exchanged through this sheath. FINDINGS: The left anterior descending has 80% stenosis proximally and ostially. This was addressed with a 2.5 x 22 mm Integrity stent. Result was 0% residual stenosis. OVERALL IMPRESSION: Successful PTCA stent of the LAD going from 80% initial stenosis to 0% residual. TRANSINT:[id number] Voice Confirmation ID: [id number] DOCUMENT ID: [id number] NATALIA SOARES MD CC: [id number] DICTATION DATE: 12/20/18 0937 COMMISSARY MANAGER: 12/20/18 1221 ADM IN [facility] [address] [place] [address]
[2018-12-18] MEDS ORDERED: LIPITOR10 MG PO (04:49)
[2018-12-18] MEDS ORDERED: BAYER CHEWABLE81 MG PO (04:49)
[2018-12-18] MEDS ORDERED: COZAAR100 MG PO (04:50)
[2018-12-18] MEDS ORDERED: PROSCAR5 MG PO (04:50)
[2018-12-18] MEDS ORDERED: HYDRALAZINE HCL50 MG PO (04:50)
[2018-12-18] MEDS ORDERED: LASIX40 MG PO (04:50)
[2018-12-18] MEDS ORDERED: FLOMAX0.4 MG PO (04:51)
[2018-12-18] MEDS ORDERED: METOPROLOL TART50 MG PO (04:51)
[2018-12-18] MEDS ORDERED: GLUCOPHAGE500 MG PO (04:58)
[2018-12-18 05:15] LABS: BASOPHILS 0.3 % (0-2); EOSINOPHILS 3.8 % (0-7); HEMATOCRIT 40.9 % (42.0-54.0); HEMOGLOBIN 13.5 g/dL (13.5-17.5); IMMATURE GRANULOCYTES 0.2 % (0-5); LYMPHOCYTES 26.3 % (15-50); MCH 28.9 pg (26.0-34.0); MCV 87.6 fL (80.0-100.0); MEAN PLATELET VOLUME 10.9 fL (7.4-10.4); MONOCYTES 10.6 % (2-11); NEUTROPHILS 58.8 % (40-80); PLATELET COUNT 192 10x3/uL (130-400); RBC 4.67 10x6/uL (4.20-6.10); WBC 5.9 10x3/uL (4.8-10.8)
[2018-12-18 05:17] LABS: INR 0.97 (0.85-1.17); PROTIME 12.4 SECONDS (11.6-15.0)
[2018-12-18 05:18] LABS: APTT 26.9 SECONDS (22.8-39.4)
[2018-12-18 05:31] VITALS: BP 187/97
[2018-12-18 05:41] LABS: ALBUMIN 2.4 g/dL (3.4-5.0); ALKALINE PHOSPHATASE 96 U/L (46-116); ALT (SGPT) 22 U/L (10-68); CALC OSMOLALITY 282 mosm/kg (275-300); CALCIUM 8.3 mg/dL (8.5-10.1); CARBON DIOXIDE 22.3 mmol/L (21.0-32.0); CHLORIDE - SERUM 104 mmol/L (98-107); CREATININE - SERUM 2.1 mg/dL (0.6-1.3); GLUCOSE 163 mg/dL (74-106); POTASSIUM - SERUM 3.9 mmol/L (3.5-5.1); PROTEIN - SERUM 7.1 g/dL (6.4-8.2); SODIUM 138 mmol/L (136-145); UREA NITROGEN 20 mg/dL (7-18); eGFR NON AFRICAN AMERICAN 32 mL/min (90-120)
[2018-12-18 05:57] LABS: APPEARANCE CLEAR (CLEAR); BACTERIA MODERATE /hpf (NONE SEEN); BILIRUBIN NEGATIVE (NEGATIVE); COLOR YELLOW (YELLOW); EPITHELIAL CELLS 0-5 /hpf (0-5); GLUCOSE 100 mg/dL (NEGATIVE); KETONE SMALL mg/dL (NEGATIVE); MUCUS <1+ /lpf (NONE SEEN); NITRITE NEGATIVE (NEGATIVE); PROTEIN 3+ mg/dL (NEGATIVE); RED CELLS - URINE 0-5 /hpf (0-5); SPECIFIC GRAVITY 1.015 (1.005-1.020); WHITE CELLS - URINE OCC /hpf (0-5)
[2018-12-18 05:57] LABS: CKMB 2.8 U/L (0.0-3.6); CREATINE KINASE 90 UL (21-232); MAGNESIUM - SERUM 1.6 mg/dL (1.8-2.4); PRO BNP 24056 pg/mL (0-450)
[2018-12-18 08:28] VITALS: BP 168/88
[2018-12-18 10:51] VITALS: BMI 33.0
[2018-12-18 12:11] VITALS: BP 156/76
[2018-12-18 16:48] VITALS: BP 165/92
--- NOTE | 2018-12-18 18:30 | MORECARE ---
CASE MANAGEMENT DISCHARGE SUMMARY PATIENT: JESUS GIORDANO UNIT: [id number] ADM DATE: 12/18/18 AGE: 83 : 37 SEX: M ROOM/BED: D.2121 AUTHOR: NICANOR ERAZO PHYSICIAN: REFERRING PHYSICIAN: NATALIA SOARES MD DATE OF SERVICE: 12/18/18 Discharge Plan Patient Name: JESUS GIORDANO [facility] [facility] 1935 Planned Disposition: Anticipated Discharge Date: Discharge Date: Expected LOS: Initial Reviewer: [email or web address] Initial Review Date: 12/18/2018 Generated: 12/18/18 7:30 pm Coverage Notice Reviewer: [email or web address] - Robin Adhikari Notice Issued Date-Time: 12/18/2018 18:05 Notice Type: Medicare Outpatient Observation Notice Notice Delivered To: Patient Relationship to Patient: National Expansion Recruiter Name: Delivery Method: HAND - Hand Delivered Dhara Days: Prior Verbal Notification: Recipient Understood Notice: Yes Recipient Signature: Yes Med Rec Note Co-signed by Attending: Coverage Notice Comment: Patient Name: JESUS GIORDANO Page [id number] at 1830 All edits/amendments must be made on the electronic document DICTATION DATE: 12/18/181828 PBX TEACHER: PAKO 12/18/181828 RPT#: [id number] DC DATE: STATUS: ADM IN [facility] [address] [place] [address] END OF REPORT
[2018-12-18 19:52] VITALS: BP 122/77
[2018-12-18 23:55] VITALS: BP 147/82
[2018-12-19 03:55] VITALS: BP 154/76
[2018-12-19 05:40] LABS: BASOPHILS 0.5 % (0-2); EOSINOPHILS 2.5 % (0-7); HEMATOCRIT 40.2 % (42.0-54.0); HEMOGLOBIN 13.2 g/dL (13.5-17.5); IMMATURE GRANULOCYTES 0.2 % (0-5); LYMPHOCYTES 28.3 % (15-50); MCH 28.6 pg (26.0-34.0); MCHC 32.8 g/dL (31.0-37.0); MCV 87.2 fL (80.0-100.0); MEAN PLATELET VOLUME 11.1 fL (7.4-10.4); MONOCYTES 12.5 % (2-11); PLATELET COUNT 190 10x3/uL (130-400); RBC 4.61 10x6/uL (4.20-6.10); RDW 15.2 % (11.5-14.5); WBC 6.5 10x3/uL (4.8-10.8)
[2018-12-19 06:06] LABS: ALBUMIN 2.2 g/dL (3.4-5.0); ANION GAP 11.8 mmol/L (8-16); BILIRUBIN - TOTAL 0.45 mg/dL (0.2-1.3); CALCIUM 8.2 mg/dL (8.5-10.1); CARBON DIOXIDE 25.1 mmol/L (21.0-32.0); CREATININE - SERUM 2.2 mg/dL (0.6-1.3); POTASSIUM - SERUM 3.9 mmol/L (3.5-5.1); PROTEIN - SERUM 6.6 g/dL (6.4-8.2)
[2018-12-19 08:37] VITALS: BP 175/91
[2018-12-19 12:13] VITALS: BP 154/80
[2018-12-19 13:45] VITALS: Ht 185.4 cm; Wt 88.2 kg
[2018-12-19 16:30] VITALS: BP 147/67
[2018-12-19 20:00] VITALS: BP 168/88
[2018-12-20 00:30] VITALS: BP 150/81
[2018-12-20 05:30] VITALS: BP 159/80
[2018-12-20 08:03] LABS: BASOPHILS 0.4 % (0-2); EOSINOPHILS 5.6 % (0-7); HEMATOCRIT 37.2 % (42.0-54.0); HEMOGLOBIN 12.2 g/dL (13.5-17.5); IMMATURE GRANULOCYTES 0.2 % (0-5); LYMPHOCYTES 34.1 % (15-50); MCH 28.4 pg (26.0-34.0); MCHC 32.8 g/dL (31.0-37.0); MCV 86.5 fL (80.0-100.0); MEAN PLATELET VOLUME 11.2 fL (7.4-10.4); MONOCYTES 13.6 % (2-11); NEUTROPHILS 46.1 % (40-80); PLATELET COUNT 187 10x3/uL (130-400); RDW 14.8 % (11.5-14.5); WBC 5.5 10x3/uL (4.8-10.8)
[2018-12-20 08:07] LABS: INR 1.01 (0.85-1.17); PROTIME 12.8 SECONDS (11.6-15.0)
[2018-12-20 08:09] LABS: ALBUMIN 2.2 g/dL (3.4-5.0); ALKALINE PHOSPHATASE 81 U/L (46-116); ALT (SGPT) 17 U/L (10-68); BILIRUBIN - TOTAL 0.34 mg/dL (0.2-1.3); CALCIUM 8.1 mg/dL (8.5-10.1); CARBON DIOXIDE 24.5 mmol/L (21.0-32.0); CHLORIDE - SERUM 104 mmol/L (98-107); GLUCOSE 98 mg/dL (74-106); POTASSIUM - SERUM 3.7 mmol/L (3.5-5.1); PROTEIN - SERUM 6.5 g/dL (6.4-8.2); SODIUM 138 mmol/L (136-145); eGFR NON AFRICAN AMERICAN 34 mL/min (90-120)
[2018-12-20 08:14] LABS: CALC OSMOLALITY 279 mosm/kg (275-300); UREA NITROGEN 25 mg/dL (7-18)
[2018-12-20 08:25] LABS: CKMB 1.8 U/L (0.0-3.6); CREATINE KINASE 73 UL (21-232); MAGNESIUM - SERUM 1.8 mg/dL (1.8-2.4); PRO BNP 18986 pg/mL (0-450)
[2018-12-20 08:27] LABS: TROPONIN-I 5.302 ng/mL (0.000-0.060)
[2018-12-20 08:30] VITALS: BP 170/95
[2018-12-20 11:46] VITALS: BP 155/91
[2018-12-20 15:47] VITALS: BP 162/89
[2018-12-20 20:00] VITALS: BP 156/94
[2018-12-21] VITALS: BP 160/94
[2018-12-21 04:00] VITALS: BP 154/81
[2018-12-21 08:36] VITALS: BP 174/94
[2018-12-21 12:07] VITALS: BP 167/86
[2018-12-21] MEDS ORDERED: PLAVIX75 MG PO (14:51)
[2018-12-21] MEDS ORDERED: COUMADIN5 MG PO (14:51)
--- NOTE | 2018-12-21 18:01 | MORECARE ---
CASE MANAGEMENT DISCHARGE SUMMARY PATIENT: JESUS GIORDANO UNIT: [id number] ADM DATE: 12/18/18 AGE: 83 : 37 SEX: M ROOM/BED: [facility] AUTHOR: NICANOR ERAZO PHYSICIAN: REFERRING PHYSICIAN: NATALIA SOARES MD DATE OF SERVICE: 12/21/18 Discharge Plan Patient Name: JESUS GIORDANO Facility: [facility]:[place] : 1935 Planned Disposition: Anticipated Discharge Date: Discharge Date: 12/21/2018 Expected LOS: Initial Reviewer: [email or web address] Initial Review Date: 12/18/2018 Generated: 12/21/18 7:01 pm Coverage Notice Reviewer: [email or web address] - Robin Adhikari Notice Issued Date-Time: 12/18/2018 18:05 Notice Type: Medicare Outpatient Observation Notice Notice Delivered To: Patient Relationship to Patient: Rail Track Layer Name: Delivery Method: HAND - Hand Delivered Dhara Days: Prior Verbal Notification: Recipient Understood Notice: Yes Recipient Signature: Yes Med Rec Note Co-signed by Attending: Coverage Notice Comment: Last DP export: 12/18/18 5:30 pm Patient Name: JESUS GIORDANO Page 20334 at 1801 All edits/amendments must be made on the electronic document DICTATION DATE: 12/21/18 1800 STEAM TRAIN DRIVER: PAKO 12/21/18 1800 RPT#: [id number] DC DATE:12/21/18 STATUS: DIS IN [place] [id number] [place] [address] END OF REPORT
== END 2018-12-21 15:35 | disposition home or self-care (01) ==
LOC: D.ER 04:41 → D.M2 06:16 → OBSVTIME 06:16 → D.M2 12-21 15:35
PROVIDERS: Family Medicine; ADMIT Internal Medicine Interventional Cardiology; ATTEND Internal Medicine Interventional Cardiology
DX: I21.4 Non-ST elevation (NSTEMI) myocardial infarction (principal); I10 Essential (primary) hypertension; I25.10 Atherosclerotic heart disease of native coronary artery without angina pectoris; E78.5 Hyperlipidemia, unspecified; I70.213 Atherosclerosis of native arteries of extremities with intermittent claudication, bilateral legs

== ENCOUNTER 2018-12-26 16:40 | Emergency (ER) | payer OTHER ==
[2018-12-19 13:45] VITALS: BMI 32.9
[~2018-12-26 16:40] MED LIST: BAYER CHEWABLE81 MG PO; COUMADIN5 MG PO; COZAAR100 MG PO; FLOMAX0.4 MG PO; GLUCOPHAGE500 MG PO; HYDRALAZINE HCL50 MG PO; LASIX40 MG PO; LIPITOR10 MG PO; METOPROLOL TART50 MG PO; PLAVIX75 MG PO; PROSCAR5 MG PO
== END 2018-12-26 18:02 | disposition left against medical advice (07) ==
LOC: D.ER 16:40
DX: R06.02 Shortness of breath (principal)

== ENCOUNTER 2018-12-27 05:16 | Inpatient (IN) | payer OTHER ==
[~2018-12-27] VITALS: Ht 185.4 cm; Wt 91.0 kg
[2018-12-27] VITALS (7 sets, daily range): BP systolic 164–188; BP diastolic 79–110; BMI 26.3
--- NOTE | 2018-12-27 05:42 | NUR ---
BLOOD SENT TO LAB
[2018-12-27 06:38] LABS: ALBUMIN 2.5 g/dL (3.4-5.0); ALKALINE PHOSPHATASE 85 U/L (46-116); ALT (SGPT) 18 U/L (10-68); CALC OSMOLALITY 280 mosm/kg (275-300); CALCIUM 8.5 mg/dL (8.5-10.1); CARBON DIOXIDE 23.9 mmol/L (21.0-32.0); CHLORIDE - SERUM 107 mmol/L (98-107); CREATININE - SERUM 1.9 mg/dL (0.6-1.3); GLUCOSE 85 mg/dL (74-106); POTASSIUM - SERUM 3.6 mmol/L (3.5-5.1); SODIUM 140 mmol/L (136-145); UREA NITROGEN 21 mg/dL (7-18); eGFR NON AFRICAN AMERICAN 36 mL/min (90-120)
[2018-12-27 06:42] LABS: BASOPHILS 0.3 % (0-2); EOSINOPHILS 4.4 % (0-7); HEMOGLOBIN 12.5 g/dL (13.5-17.5); IMMATURE GRANULOCYTES 0.3 % (0-5); LYMPHOCYTES 28.6 % (15-50); MCH 28.5 pg (26.0-34.0); MCHC 32.9 g/dL (31.0-37.0); MCV 86.8 fL (80.0-100.0); MEAN PLATELET VOLUME 11.2 fL (7.4-10.4); MONOCYTES 12.9 % (2-11); NEUTROPHILS 53.5 % (40-80); PLATELET COUNT 262 10x3/uL (130-400); RBC 4.38 10x6/uL (4.20-6.10); RDW 15.7 % (11.5-14.5); WBC 6.6 10x3/uL (4.8-10.8)
[2018-12-27 06:44] LABS: APTT 38.7 SECONDS (22.8-39.4); INR 1.77 (0.85-1.17)
[2018-12-27 06:53] LABS: CKMB 0.9 U/L (0.0-3.6); CREATINE KINASE 74 UL (21-232); PRO BNP 25269 pg/mL (0-450)
[2018-12-27 06:56] LABS: TROPONIN-I 0.116 ng/mL (0.000-0.060)
--- NOTE | 2018-12-27 07:16 | NUR ---
HAND-OFF REPORT RECEIVED FROM DANIEL GAMBINO
--- NOTE | 2018-12-27 07:26 | NUR ---
WILL ADMINISTER ORDERED ABT ONCE ORDERED BLOOD CULTURE X2 IS COMPLETE. LAB NOTIFIED.
--- NOTE | 2018-12-27 08:08 | NUR ---
NO ORDERED ZOSYN IN XIS, SPOKE WITH DEXTER IN PHARMACY AT APPROX. 0745 TO REQUEST THAT MEDICATION BE SENT TO ED FOR ADMINISTRATION. AWAITING ARRIVAL OF REQUESTED MEDICATION.
--- NOTE | 2018-12-27 08:12 | NUR ---
PT OBSERVED SITTING IN BED, SEMIFOWLER'S. RESPIRATIONS EVEN AND UNLABORED. PT GIVEN AHA MEAL TRAY PER DIETARY ORDERS. PT ALERT AND ORIENTED. PT AWARE HE IS BEING ADMITTED TO [facility], AWAITING BED ASSIGNMENT. FAMILY MEMBER AT THE BEDSIDE. CALL LIGHT IN REACH, WILL CONTINUE TO MONITOR.
--- NOTE | 2018-12-27 09:46 | NUR ---
ORDERED ZOSYN INITIATED AT 0850 COMPLETE AT 0920.
--- NOTE | 2018-12-27 10:37 | NUR ---
ORDERED VANCOMYCIN INITIATED AT 0936 COMPLETE AT THIS TIME.
--- NOTE | 2018-12-27 12:25 | NUR ---
IV IN THE RT AC NO LONGER PATENT. IV DC'D, IV STARTED IN ALTERNATE LOCATION
--- NOTE | 2018-12-27 13:56 | NUR ---
PT C/O FEELING SOB, O2 SAT 92% WITH O2 IN PLACE AT 2LPM VIA NC. RT NOTIFIED TO ADMINISTER PRN UPDRAFT.
[2018-12-27 15:56] LABS: % SATURATION 23 % (15-55); IRON 53 ug/dl (35-150); TOTAL IRON BIND CAPACITY 227 ug/dl (260-445); UNSAT IRON BIND CAPACITY 174 ug/dl (150-375)
--- NOTE | 2018-12-27 19:00 | NUR ---
ALERT/AWAKE TALKATIVE, JOKING. DENIES PAIN OR ANY NEEDS. HAS 02 AT 4L/NC, RR 22 EVEN NON-LABORED. IV IN L WRIST INTACT SL. HIS IS PRESENT IN ROOM.
--- NOTE | 2018-12-27 21:35 | NUR ---
ADMIN SCHED PO MEDS AND LOVENOX SQ. DR ROBLES ENTERED ROOM.
--- NOTE | 2018-12-27 22:55 | NUR ---
RECEIVING RESP UPDRAFT TX.
[2018-12-28] VITALS: BP 166/85
--- NOTE | 2018-12-28 05:00 | NUR ---
DIALYSIS EQUIPMENT TECHNICIAN'S GIVING BATH, CLEANING FOR INCONTINENCE OF URINE.
[2018-12-28 05:47] VITALS: BP 173/95
[2018-12-28 06:11] LABS: BASOPHILS 0.1 % (0-2); EOSINOPHILS 2.1 % (0-7); HEMATOCRIT 38.6 % (42.0-54.0); HEMOGLOBIN 12.9 g/dL (13.5-17.5); IMMATURE GRANULOCYTES 0.1 % (0-5); MCH 28.6 pg (26.0-34.0); MCHC 33.4 g/dL (31.0-37.0); MCV 85.6 fL (80.0-100.0); MEAN PLATELET VOLUME 10.8 fL (7.4-10.4); NEUTROPHILS 65.7 % (40-80); PLATELET COUNT 256 10x3/uL (130-400); RBC 4.51 10x6/uL (4.20-6.10); RDW 15.5 % (11.5-14.5); WBC 8.5 10x3/uL (4.8-10.8)
[2018-12-28 06:47] LABS: CALC OSMOLALITY 280 mosm/kg (275-300); CALCIUM 8.5 mg/dL (8.5-10.1); CARBON DIOXIDE 22.9 mmol/L (21.0-32.0); CHLORIDE - SERUM 103 mmol/L (98-107); CKMB 0.7 U/L (0.0-3.6); CREATINE KINASE 43 UL (21-232); CREATININE - SERUM 2.1 mg/dL (0.6-1.3); GLUCOSE 122 mg/dL (74-106); POTASSIUM - SERUM 3.4 mmol/L (3.5-5.1); SODIUM 138 mmol/L (136-145); UREA NITROGEN 24 mg/dL (7-18); VANCOMYCIN - RANDOM 8.4 ug/mL (10.0-20.0); eGFR NON AFRICAN AMERICAN 32 mL/min (90-120)
[2018-12-28 06:48] LABS: TROPONIN-I 0.077 ng/mL (0.000-0.060)
--- NOTE | 2018-12-28 07:36 | NUR ---
REPORT RECIEVED AND MORNING ROUNDING COMPLETE. PT LAYING IN BED. PT AWAKE AND COMPLAINING OF SOB, RT IN THE ROOM, PT STATES NO OTHER NEEDS AT THIS TIME. CALL LIGHT WITHIN REACH.
[2018-12-28 09:17] LABS: PROTIME 23.9 SECONDS (11.6-15.0)
[2018-12-28 09:22] LABS: INR 2.22 (0.85-1.17)
[2018-12-28 14:57] VITALS: Ht 185.4 cm; Wt 91.0 kg
--- NOTE | 2018-12-28 18:03 | NUR ---
I have reviewed this patient and I concur with the Shift Assessment completed by the Licensed Practical Nurse today this shift.
--- NOTE | 2018-12-28 19:00 | NUR ---
AROUSES WITH TOUCH SEEMS HARD OF HEARING SKIN WARM AND DRY BED LOCKED IN LOW POSITION CALL LIGHT IN PLACE SR X2 DENIES NEEDS AT THIS TIME O2 IS AT 5L
[2018-12-28 20:00] VITALS: BP 127/70
[2018-12-29 04:00] VITALS: BP 145/90
--- NOTE | 2018-12-29 04:40 | NUR ---
I have reviewed this patient and I concur with the Shift Assessment completed by the Licensed Practical Nurse today this shift.
[2018-12-29 07:08] LABS: HEMATOCRIT 35.9 % (42.0-54.0); HEMOGLOBIN 12.1 g/dL (13.5-17.5); LYMPHOCYTES 13.4 % (15-50); MCH 28.9 pg (26.0-34.0); MCHC 33.7 g/dL (31.0-37.0); MCV 85.9 fL (80.0-100.0); MEAN PLATELET VOLUME 10.2 fL (7.4-10.4); NEUTROPHILS 75.6 % (40-80); PLATELET COUNT 220 10x3/uL (130-400); RBC 4.18 10x6/uL (4.20-6.10); RDW 15.7 % (11.5-14.5)
[2018-12-29 07:19] LABS: WBC 5.3 10x3/uL (4.8-10.8)
--- NOTE | 2018-12-29 07:28 | NUR ---
PT AWAKE AND ORIENTED. EXPRESS DESIRE TO GO HOME TODAY, STATING HE WILL GO HOME REGARDLESS BUT HE WOULD LIKE TO DO IT THE PROPPER WAY. PT STATES HIS HAS DEMENTIA AND HE NEEDS TO GO HOME TO PROVIDE CARE FOR HER SOON POSSIBLE. REQUESTED TO GO HOME EARLY HE CAN THIS MORNING, EXPLIANED THAT HE HAS TO WAIT FOR THE DR OR PRIMARY CLASS TEACHER TO COME IN AND SEE HIM PRIOR TO RELEASE. PT UNDERSTANDS BUT IS CLEARLY EXTREMELY ANXIOUS TO GET HOME. I WILL LET THE DR. KNOW OF THE PTS JONAH. ALFREDO IN REACH. SRX2.
[2018-12-29 07:39] LABS: ANION GAP 15.5 mmol/L (8-16); CALCIUM 8.2 mg/dL (8.5-10.1); CARBON DIOXIDE 22.3 mmol/L (21.0-32.0); CREATININE - SERUM 2.5 mg/dL (0.6-1.3); POTASSIUM - SERUM 3.8 mmol/L (3.5-5.1); VANCOMYCIN - RANDOM 14.9 ug/mL (10.0-20.0)
[2018-12-29 07:49] LABS: INR 2.65 (0.85-1.17); PROTIME 27.5 SECONDS (11.6-15.0)
[2018-12-29 09:17] LABS: FOLATE (FOLIC ACID) - SERUM 14.2 ng/mL (>3.0)
[2018-12-29] MEDS ORDERED: ZITHROMAX500 MG PO (10:04)
[2018-12-29] MEDS ORDERED: OMNICEF300 MG PO (10:04)
[2018-12-29 10:21] VITALS: BP 150/73
--- NOTE | 2018-12-29 11:54 | MORECARE ---
CASE MANAGEMENT DISCHARGE SUMMARY PATIENT: JESUS GIORDANO UNIT: [id number] ADM DATE: 12/27/18 AGE: 83 : 37 SEX: M ROOM/BED: D.2134 AUTHOR: NICANOR ERAZO PHYSICIAN: REFERRING PHYSICIAN: SHANNON ROBLES MD DATE OF SERVICE: 12/29/18 Discharge Plan Patient Name: JESUS GIORDANO Facility: [facility]:[place] : 1935 Planned Disposition: Home Anticipated Discharge Date: 12/29/18 Discharge Date: Expected LOS: 2 Initial Reviewer: [id number] Initial Review Date: 12/29/2018 Generated: 12/29/18 12:54 pm DCPIA - Discharge Planning Initial Assessment Updated by LULA: Robin Adhikari on 12/29/18 11:53 am * Is the patient Alert and Oriented? Yes * How many steps to enter\exit or inside your home? 0-0 / 8-I * PCP DR. SUSIE DELEON * Pharmacy [facility] * Preadmission Environment Home with Family * ADLs Independent * Equipment None * Other Equipment NO MEDICAL EQUIPMENT PROVIDER PREFERENCE * List name and contact numbers for known caregivers / representatives who currently or will assist patient after discharge: COLE WERNER, SPOUSE, * Verbal permission to speak to the caregivers and representatives has been obtained from the patient. N/A * Community resources currently utilized None * Please name any agencies selected above. NONE * Additional services required to return to the preadmission environment? No * Can the patient safely return to the preadmission environment? Yes * Has this patient been hospitalized within the prior 30 days at any hospital? No Coverage Notice Reviewer: [id number] - Robin Adhikari Notice Issued Date-Time: 12/29/2018 11:40 Notice Type: IM Discharge Notice Notice Delivered To: Patient Relationship to Patient: Mid Level Project Manager Name: Delivery Method: HAND - Hand Delivered Dhara Days: Prior Verbal Notification: Recipient Understood Notice: Yes Recipient Signature: Yes Med Rec Note Co-signed by Attending: Coverage Notice Comment: Patient Name: JESUS GIORDANO Page [phone] at 1154 All edits/amendments must be made on the electronic document DICTATION DATE: 12/29/181153 MANAGER BEHAVIOR: PAKO 12/29/18 115 RPT#: [id number] DC DATE: STATUS: ADM IN [facility] [address] [place] [address] END OF REPORT
--- NOTE | 2018-12-29 12:03 | MORECARE ---
CASE MANAGEMENT DISCHARGE SUMMARY PATIENT: JESUS GIORDANO UNIT: [id number] ADM DATE: 12/27/18 AGE: 83 : 37 SEX: M ROOM/BED: D.2134 AUTHOR: CASTRO,DOC PHYSICIAN: REFERRING PHYSICIAN: SHANNON ROBLES MD DATE OF SERVICE: 12/29/18 Discharge Plan Patient Name: JESUS GIORDANO Facility: [facility]:[place] : 1935 Planned Disposition: Home Anticipated Discharge Date: 12/29/18 Discharge Date: Expected LOS: 2 Initial Reviewer: [email or web address] Initial Review Date: 12/29/2018 Generated: 12/29/18 1:03 pm Comments DCP- Discharge Planning Updated by [email or web address]: Robin Adhikari on 12/29/18 10:[address] Patient Name: JESUS GIORDANO Admission Status: ER Accout number: [id number] Admission Date: 12-27-2018 : 1935 Admission Diagnosis:SHORTNESS OF BREATH Attending: SHANNON ROBLES Current LOS: 2 Anticipated DC Date: 12-29-2018 Planned Disposition: Home Primary Insurance: [facility] Discharge Planning Comments: CM MET WITH PT IN ROOM TO DISCUSS DISCHARGE PLANNING AND NEEDS. PT REPORTS LIVING AT HOME INDEPENDENTLY WITH SPOUSE. PT HAS NO MEDICAL EQUIPMENT AND NO OUTSIDE SERVICES ASSISTING IN THE HOME. CM DISCUSSED AVAILABILITY OF HOME HEALTH, REHAB SERVICES AND MEDICAL EQUIPMENT. PT DENIES DISCHARGE NEEDS, REPORTS HIS WILL PICK HIM UP FOR DISCHARGE HOME. IMPORTANT MESSAGE FROM MEDICARE PROVIDED AND EXPLAINED. PT OBSERVED ON 3LNC OXYGEN IN ROOM BY CM. CM NOTIFED BEDSIDE NURSE THAT PT DOES NOT HAVE OXYGEN AT HOME AND WILL REQUIRE OXYGEN WEANING TO ROOM AIR FOR DICHARGE HOME TODAY. Molding Plasterer: Robin Adhikari DCPIA - Discharge Planning Initial Assessment Updated by [id number]: Robin Adhikari on 12/29/18 11:53 am * Is the patient Alert and Oriented? Yes * How many steps to enter\exit or inside your home? 0-0 / 8-I * PCP DR. SUSIE DELEON * Pharmacy [facility] * Preadmission Environment Home with Family * ADLs Independent * Equipment None * Other Equipment NO MEDICAL EQUIPMENT PROVIDER PREFERENCE * List name and contact numbers for known caregivers / representatives who currently or will assist patient after discharge: COLE WERNER, SPOUSE, * Verbal permission to speak to the caregivers and representatives has been obtained from the patient. N/A * Community resources currently utilized None * Please name any agencies selected above. NONE * Additional services required to return to the preadmission environment? No * Can the patient safely return to the preadmission environment? Yes * Has this patient been hospitalized within the prior 30 days at any hospital? No Coverage Notice Reviewer: [id number] Shanta Adhikari Notice Issued Date-Time: 12/29/2018 11:40 Notice Type: IM Discharge Notice Notice Delivered To: Patient Relationship to Patient: Nursing Staffing Coordinator Name: Delivery Method: HAND - Hand Delivered Dhara Days: Prior Verbal Notification: Recipient Understood Notice: Yes Recipient Signature: Yes Med Rec Note Co-signed by Attending: Coverage Notice Comment: Last DP export: 12/29/18 10:54 a Patient Name: JESUS GIORDANO Page [phone] at 1203 All edits/amendments must be made on the electronic document DICTATION DATE: 12/29/18 1203 CONDOMINIUM MANAGER: PAKO 12/29/18 1203 RPT#: [id number] DC DATE: STATUS: ADM IN [facility] [address] [place] [address] END OF REPORT
--- NOTE | 2018-12-29 12:19 | NUR ---
WEANED PT DOWN FROM 02. CURRENTLY ON ROOM AIR SATTING 97-98. PT IS EAGER TO LEAVE SOON POSSIBLE.
--- NOTE | 2018-12-29 13:06 | NUR ---
PT ESCORTED OUT VIA WHEELCHIAR TO [facility] WITH VOLUNTEER.
--- NOTE | 2019-01-01 08:31 | MORECARE ---
CASE MANAGEMENT DISCHARGE SUMMARY PATIENT: JESUS GIORDANO UNIT: [id number] ADM DATE: 12/27/18 AGE: 83 : 37 SEX: M ROOM/BED: D.2134 AUTHOR: CASTRO,DOC PHYSICIAN: REFERRING PHYSICIAN: SHANNON ROBLES MD DATE OF SERVICE: 01/01/19 Discharge Plan Patient Name: JESUS GIORDANO Facility: [facility]:[place] : 1935 Planned Disposition: Home Anticipated Discharge Date: 12/29/18 Discharge Date: 12/29/2018 Expected LOS: 2 Initial Reviewer: [email or web address] Initial Review Date: 12/29/2018 Generated: 01/01/19 9:30 am Comments DCP- Discharge Planning Updated by [id number]: Robin Adhikari on 12/29/18 10:[address] Patient Name: JESUS GIORDANO Admission Status: ER Accout number: [id number] Admission Date: 12-27-2018 : 1935 Admission Diagnosis:SHORTNESS OF BREATH Attending: SHANNON ROBLES Current LOS: 2 Anticipated DC Date: 12-29-2018 Planned Disposition: Home Primary Insurance: [facility] Discharge Planning Comments: CM MET WITH PT IN ROOM TO DISCUSS DISCHARGE PLANNING AND NEEDS. PT REPORTS LIVING AT HOME INDEPENDENTLY WITH SPOUSE. PT HAS NO MEDICAL EQUIPMENT AND NO OUTSIDE SERVICES ASSISTING IN THE HOME. CM DISCUSSED AVAILABILITY OF HOME HEALTH, REHAB SERVICES AND MEDICAL EQUIPMENT. PT DENIES DISCHARGE NEEDS, REPORTS HIS WILL PICK HIM UP FOR DISCHARGE HOME. IMPORTANT MESSAGE FROM MEDICARE PROVIDED AND EXPLAINED. PT OBSERVED ON 3LNC OXYGEN IN ROOM BY CM. CM NOTIFED BEDSIDE NURSE THAT PT DOES NOT HAVE OXYGEN AT HOME AND WILL REQUIRE OXYGEN WEANING TO ROOM AIR FOR DICHARGE HOME TODAY. Food Mixer: Robin Adhikari DCPIA - Discharge Planning Initial Assessment Updated by [email or web address]: Robin Adhikari on 12/29/18 11:53 am * Is the patient Alert and Oriented? Yes * How many steps to enter\exit or inside your home? 0-0 / 8-I * PCP DR. SUSIE DELEON * Pharmacy [facility] * Preadmission Environment Home with Family * ADLs Independent * Equipment None * Other Equipment NO MEDICAL EQUIPMENT PROVIDER PREFERENCE * List name and contact numbers for known caregivers / representatives who currently or will assist patient after discharge: COLE WERNER, SPOUSE, * Verbal permission to speak to the caregivers and representatives has been obtained from the patient. N/A * Community resources currently utilized None * Please name any agencies selected above. NONE * Additional services required to return to the preadmission environment? No * Can the patient safely return to the preadmission environment? Yes * Has this patient been hospitalized within the prior 30 days at any hospital? No Coverage Notice Reviewer: [id number] Shanta Adhikari Notice Issued Date-Time: 12/29/2018 11:40 Notice Type: IM Discharge Notice Notice Delivered To: Patient Relationship to Patient: Manufacturing Job Titles Name: Delivery Method: HAND - Hand Delivered Dhara Days: Prior Verbal Notification: Recipient Understood Notice: Yes Recipient Signature: Yes Med Rec Note Co-signed by Attending: Coverage Notice Comment: Last DP export: 12/29/18 11:03 a Patient Name: JESUS GIORDANO Page [phone] at 0831 All edits/amendments must be made on the electronic document DICTATION DATE: 01/01/19829 PRODUCT MARKETING MANAGER: PAKO 01/01/19829 RPT#: [id number] DC DATE:12/29/18 STATUS: DIS IN [facility] [address] [place] [address] END OF REPORT
== END 2018-12-29 13:07 | disposition home or self-care (01) | DRG 291 ==
LOC: D.ER 05:16 → D.EDHOLD 08:01 → D.M2 08:01
PROVIDERS: Family Medicine; ADMIT Internal Medicine Nephrology; ATTEND Internal Medicine Nephrology
DX: I11.0 Hypertensive heart disease with heart failure (principal); I50.31 Acute diastolic (congestive) heart failure; J18.9 Pneumonia, unspecified organism; I24.0 Acute coronary thrombosis not resulting in myocardial infarction; N17.9 Acute kidney failure, unspecified; J98.11 Atelectasis; I16.0 Hypertensive urgency; D64.9 Anemia, unspecified; E78.5 Hyperlipidemia, unspecified; I08.0 Rheumatic disorders of both mitral and aortic valves

== ENCOUNTER 2019-01-03 08:26 | Inpatient (IN) | payer OTHER ==
[~2019-01-03] VITALS: Ht 185.4 cm; Wt 85.5 kg
[~2019-01-03 08:26] MED LIST changes: +OMNICEF300 MG PO; +ZITHROMAX500 MG PO
[2019-01-03 08:55] LABS: BASOPHILS 0.2 % (0-2); EOSINOPHILS 1.2 % (0-7); HEMATOCRIT 37.5 % (42.0-54.0); HEMOGLOBIN 12.4 g/dL (13.5-17.5); IMMATURE GRANULOCYTES 0.2 % (0-5); LYMPHOCYTES 10.9 % (15-50); MCH 28.6 pg (26.0-34.0); MCHC 33.1 g/dL (31.0-37.0); MCV 86.4 fL (80.0-100.0); MEAN PLATELET VOLUME 11.1 fL (7.4-10.4); MONOCYTES 10.4 % (2-11); NEUTROPHILS 77.1 % (40-80); RBC 4.34 10x6/uL (4.20-6.10); RDW 15.9 % (11.5-14.5); WBC 10.3 10x3/uL (4.8-10.8)
[2019-01-03 08:56] LABS: PLATELET COUNT 267 10x3/uL (130-400)
[2019-01-03 09:10] LABS: ALBUMIN 2.5 g/dL (3.4-5.0); ALKALINE PHOSPHATASE 74 U/L (46-116); ALT (SGPT) 20 U/L (10-68); BILIRUBIN - TOTAL 0.52 mg/dL (0.2-1.3); CALC OSMOLALITY 288 mosm/kg (275-300); CALCIUM 8.8 mg/dL (8.5-10.1); CARBON DIOXIDE 19.5 mmol/L (21.0-32.0); CHLORIDE - SERUM 107 mmol/L (98-107); CREATININE - SERUM 2.4 mg/dL (0.6-1.3); GLUCOSE 137 mg/dL (74-106); INR 2.63 (0.85-1.17); POTASSIUM - SERUM 4.1 mmol/L (3.5-5.1); PROTEIN - SERUM 7.4 g/dL (6.4-8.2); PROTIME 27.3 SECONDS (11.6-15.0); SODIUM 140 mmol/L (136-145); UREA NITROGEN 34 mg/dL (7-18); eGFR NON AFRICAN AMERICAN 28 mL/min (90-120)
[2019-01-03 09:11] LABS: APTT 50.1 SECONDS (22.8-39.4)
[2019-01-03 09:27] LABS: CKMB 2.5 U/L (0.0-3.6); CREATINE KINASE 113 UL (21-232)
[2019-01-03 09:30] LABS: TROPONIN-I 0.115 ng/mL (0.000-0.060)
--- NOTE | 2019-01-03 09:31 | NUR ---
CRITICAL LAB CALLED.. TROPONIN 0.115. EDP NOTIFIED.
[2019-01-03 09:46] LABS: PRO BNP 52730 pg/mL (0-450)
[2019-01-03 09:48] LABS: MAGNESIUM - SERUM 1.7 mg/dL (1.8-2.4); THYROID STIMULATING HORMONE 5.31 uIU/mL (0.36-3.74)
[2019-01-03 10:54] VITALS: BP 176/106; BMI 21.1
--- NOTE | 2019-01-03 16:02 | NUR ---
PT LEAVING FOR VQ SCAN. NO CURRENT NEEDS.
--- NOTE | 2019-01-03 19:30 | NUR ---
RESUMING PATIENT CARE. PATIENT RESTING COMFORTABLY IN BED. RESPIRATIONS ARE EVEN AND UNLABORED. NO S/S OF DISTRESS. NO C/O PAIN. CALL LIGHT WITHIN REACH. AT BEDSIDE. WILL CPOC.
[2019-01-03 20:00] VITALS: BP 133/90
[2019-01-04] VITALS: BP 126/88
--- NOTE | 2019-01-04 02:55 | NUR ---
PATIENT RESTING COMFORTABLY IN BED. RESPIRATIONS ARE EVEN AND UNLABORED. NO S/S OF DISTRESS. AT BEDSIDE. CALL LIGHT WITHIN REACH. WILL CPOC.
[2019-01-04 04:00] VITALS: BP 139/85
[2019-01-04 05:49] LABS: BASOPHILS 0.1 % (0-2); EOSINOPHILS 0.6 % (0-7); HEMATOCRIT 37.6 % (42.0-54.0); HEMOGLOBIN 12.3 g/dL (13.5-17.5); IMMATURE GRANULOCYTES 0.3 % (0-5); LYMPHOCYTES 13.4 % (15-50); MCH 28.3 pg (26.0-34.0); MCHC 32.7 g/dL (31.0-37.0); MCV 86.4 fL (80.0-100.0); MEAN PLATELET VOLUME 11.4 fL (7.4-10.4); MONOCYTES 12.1 % (2-11); NEUTROPHILS 73.5 % (40-80); PLATELET COUNT 275 10x3/uL (130-400); RBC 4.35 10x6/uL (4.20-6.10); WBC 9.3 10x3/uL (4.8-10.8)
[2019-01-04 06:01] LABS: ANION GAP 17.2 mmol/L (8-16); CALCIUM 8.8 mg/dL (8.5-10.1); CARBON DIOXIDE 22.8 mmol/L (21.0-32.0); CREATININE - SERUM 2.7 mg/dL (0.6-1.3)
--- NOTE | 2019-01-04 08:15 | NUR ---
AM ROUNDS COMPLETED. INTRODUCED MYSELF TO PT PRIMARY RN FOR TODAYS SHIFT. PT IS A&O SITTING UP IN BED AND HAS URINE AND FECES ALL OVER HIS BED. COMPLETE BED CHANGE AND GOWN CHANGE PROVIDED. ASSISTED PT INTO CHAIR TO SIT UP FOR A LITTLE BIT. PT VOICED THANKS. SHIFT ASSESSMENT COMPLETED. PT STATES HE HAD A GOOD NIGHT OVERALL AND FEELS LIKE HE IS BREATHING BETTER. RR NONLABORED ON 4L NC. CL IN REACH, WILL CTM.
[2019-01-04 08:36] VITALS: BP 151/85
[2019-01-04 09:29] LABS: MAGNESIUM - SERUM 1.9 mg/dL (1.8-2.4); PHOSPHOROUS 4.7 mg/dL (2.5-4.9)
[2019-01-04 11:45] VITALS: BP 139/79
--- NOTE | 2019-01-04 19:30 | NUR ---
RESUMING PATIENT CARE. PATIENT RESTING COMFORTABLY IN BED. PATIENT TALKING ON CELL PHONE, SEEMS ALERT AND ORIENTED. AT BEDSIDE. CALL LIGHT WITHIN REACH. WILL CPOC.
[2019-01-04 20:00] VITALS: BP 138/70
[2019-01-05 04:00] VITALS: BP 142/74
[2019-01-05 05:47] LABS: BASOPHILS 0.2 % (0-2); EOSINOPHILS 2.3 % (0-7); HEMATOCRIT 38.5 % (42.0-54.0); HEMOGLOBIN 12.5 g/dL (13.5-17.5); IMMATURE GRANULOCYTES 0.3 % (0-5); LYMPHOCYTES 16.1 % (15-50); MCH 28.2 pg (26.0-34.0); MCHC 32.5 g/dL (31.0-37.0); MCV 86.7 fL (80.0-100.0); MEAN PLATELET VOLUME 11.6 fL (7.4-10.4); MONOCYTES 12.5 % (2-11); NEUTROPHILS 68.6 % (40-80); PLATELET COUNT 300 10x3/uL (130-400); RBC 4.44 10x6/uL (4.20-6.10); RDW 15.8 % (11.5-14.5); WBC 10.3 10x3/uL (4.8-10.8)
[2019-01-05 06:19] LABS: ALBUMIN 2.5 g/dL (3.4-5.0); ANION GAP 16.2 mmol/L (8-16); BILIRUBIN - TOTAL 0.55 mg/dL (0.2-1.3); CREATININE - SERUM 2.8 mg/dL (0.6-1.3); POTASSIUM - SERUM 4.2 mmol/L (3.5-5.1); PROTEIN - SERUM 7.5 g/dL (6.4-8.2)
[2019-01-05 06:40] LABS: INR 2.56 (0.85-1.17); PROTIME 26.8 SECONDS (11.6-15.0)
--- NOTE | 2019-01-05 08:03 | NUR ---
AM ROUNDS COMPLETED. INTRODUCED MYSELF TO PT PRIMARY RN FOR TODAYS SHIFT. PT IS A&O SITTING UP IN BED RESTING QUIETLY. SHIFT ASSESSMENT COMPLETED. PT STATES HE IS FEELING BETTER AND BREATHING EASIER. NC @4L IN PLACE WILL TRY TO TAPER OFTEN ABLE PT WAS ORIGINALLY ON RA AT HOME. BUMEX DRIP INFUSING VIA R.AC PIV @5ML/HR, DRSG CDI. UNABLE TO GET ACCURATE OUTPUT R/T PTS INCONTINENT EPISODES, WILL GET DAILY WEIGHT IT WAS NOT PERFORMED TO SEE ABOUT WEIGHT CHANGE WITH THE DIURESIS. PT SITTING UP IN BED RESTING QUIETLY WAITING ON BREAKFAST. NO FAMILY PRESENT. WILL CTM.
[2019-01-05 08:49] VITALS: BP 137/88
[2019-01-05 10:30] VITALS: Ht 185.4 cm; Wt 85.5 kg
[2019-01-05 12:35] VITALS: BP 131/78
[2019-01-05 15:51] LABS: CREATININE - URINE 45.2 mg/dL (30-125); PROTEIN - URINE 110.2 mg/dL (0.0-11.9)
[2019-01-05 15:56] LABS: APPEARANCE CLEAR (CLEAR); BILIRUBIN NEGATIVE (NEGATIVE); COLOR YELLOW (YELLOW); GLUCOSE NEGATIVE (NEGATIVE); KETONE NEGATIVE (NEGATIVE); NITRITE NEGATIVE (NEGATIVE); PROTEIN TRACE mg/dL (NEGATIVE); SPECIFIC GRAVITY 1.015 (1.005-1.020); UROBILINOGEN NORMAL (NORMAL)
[2019-01-05 16:16] VITALS: BP 122/52
--- NOTE | 2019-01-05 19:55 | NUR ---
INITIAL ROUNDS AND ASSESSMENT COMPLETED. PT RESTING WITH NO DISTRESS. MONITOR AND CPOC.
[2019-01-05 20:58] VITALS: BP 121/58
--- NOTE | 2019-01-05 22:08 | NUR ---
BEDTIME MEDS GIVEN. IV BUMEX AT 5ML/HR INFUSING. SR/73 PER TELEMETRY. MONITOR AND CPOC.
[2019-01-06 00:56] VITALS: BP 121/62
--- NOTE | 2019-01-06 03:00 | NUR ---
RESTING IN BED WITH NO DISTRESS. MONITOR AND CPOC.
[2019-01-06 04:00] VITALS: BP 155/78
[2019-01-06 04:56] LABS: BASOPHILS 0.1 % (0-2); EOSINOPHILS 2.4 % (0-7); HEMATOCRIT 37.9 % (42.0-54.0); HEMOGLOBIN 12.8 g/dL (13.5-17.5); IMMATURE GRANULOCYTES 0.3 % (0-5); LYMPHOCYTES 15.7 % (15-50); MCH 28.6 pg (26.0-34.0); MCHC 33.8 g/dL (31.0-37.0); MEAN PLATELET VOLUME 11.4 fL (7.4-10.4); MONOCYTES 11.4 % (2-11); NEUTROPHILS 70.1 % (40-80); PLATELET COUNT 275 10x3/uL (130-400); RBC 4.48 10x6/uL (4.20-6.10); RDW 15.5 % (11.5-14.5); WBC 9.5 10x3/uL (4.8-10.8)
[2019-01-06 04:59] LABS: MCV 84.6 fL (80.0-100.0)
[2019-01-06 05:10] LABS: ALBUMIN 2.3 g/dL (3.4-5.0); ANION GAP 16.5 mmol/L (8-16); BILIRUBIN - TOTAL 0.53 mg/dL (0.2-1.3); CALCIUM 8.6 mg/dL (8.5-10.1); CARBON DIOXIDE 24.1 mmol/L (21.0-32.0); CREATININE - SERUM 2.8 mg/dL (0.6-1.3); POTASSIUM - SERUM 3.6 mmol/L (3.5-5.1); PROTEIN - SERUM 7.4 g/dL (6.4-8.2)
[2019-01-06 09:12] VITALS: BP 164/72
[2019-01-06 12:54] VITALS: BP 136/68
[2019-01-06 17:23] VITALS: BP 134/64
[2019-01-06 20:00] VITALS: BP 133/59
--- NOTE | 2019-01-06 20:00 | NUR ---
INITIAL ROUNDS AND ASSESSMENT COMPLETED. PT RESTING IN BED WITH O2 @ 4L/NC IN PLACE. CURRENTLY EXPERIENCING A BLOODY NOSE/COLD TOWELS HAVE BEEN APPLIED AND NOSE BLEED IS SLOWING AT THIS TIME. IS AT BEDSIDE IN A WHEELCHAIR FROM HER ROOM WHERE SHE IS ALSO AN INPATIENT. BUMEX DRIP @ 5ML/HR INFUSING TO RIGHT WRIST. SR PER TELEMETRY. MONITOR AND CPOC.
[2019-01-07] VITALS: BP 131/64
--- NOTE | 2019-01-07 02:14 | NUR ---
PT RESTING WITH NO DISTRESS. 5 BEAT RUN OF VTACH. PT WITH NO PAIN OR DISCOMFORT/ASYMPTOMATIC. MONITOR AND CPOC.
[2019-01-07 04:00] VITALS: BP 147/68
[2019-01-07 05:38] LABS: BASOPHILS 0.2 % (0-2); EOSINOPHILS 3.3 % (0-7); HEMATOCRIT 37.4 % (42.0-54.0); HEMOGLOBIN 12.5 g/dL (13.5-17.5); IMMATURE GRANULOCYTES 0.1 % (0-5); LYMPHOCYTES 17.2 % (15-50); MCH 27.8 pg (26.0-34.0); MCHC 33.4 g/dL (31.0-37.0); MCV 83.1 fL (80.0-100.0); MEAN PLATELET VOLUME 11.6 fL (7.4-10.4); MONOCYTES 10.8 % (2-11); NEUTROPHILS 68.4 % (40-80); PLATELET COUNT 263 10x3/uL (130-400); RDW 15.3 % (11.5-14.5); WBC 8.6 10x3/uL (4.8-10.8)
[2019-01-07 05:53] LABS: ALBUMIN 2.2 g/dL (3.4-5.0); ANION GAP 16.8 mmol/L (8-16); BILIRUBIN - TOTAL 0.47 mg/dL (0.2-1.3); CALCIUM 8.5 mg/dL (8.5-10.1); CARBON DIOXIDE 24.9 mmol/L (21.0-32.0); CREATININE - SERUM 2.8 mg/dL (0.6-1.3); POTASSIUM - SERUM 3.7 mmol/L (3.5-5.1); PROTEIN - SERUM 7.1 g/dL (6.4-8.2)
--- NOTE | 2019-01-07 07:30 | NUR ---
ASSESSMENT COMPLETED. ALERT AND ORIENTED. TELEMERTY SHOWS SR 74. O2 AT 4 L/M PER NC. RIGHT WRIST WITH BUMEX AT 5. UP WITH ASSIST. WILL MONITOR
[2019-01-07 09:54] VITALS: BP 125/62
[2019-01-07 12:46] VITALS: BP 116/40
--- NOTE | 2019-01-07 15:27 | NUR ---
LYING QUIETLY. DENIES ANY NEEDS. BUMEX DRIP AT 5MG. TELEMERTY SHOWS SR.
[2019-01-07 18:31] VITALS: BP 108/66
[2019-01-07 20:01] VITALS: BP 136/61
[2019-01-08 00:30] VITALS: BP 135/46
[2019-01-08 03:48] VITALS: BP 157/72
--- NOTE | 2019-01-08 04:41 | NUR ---
AWAKE AND ALERT/WATCHING TV. VOICING NO C/O. BUMEX DRIP AT 5ML/HR INFUSING. MONITOR AND CPOC.
[2019-01-08 05:29] LABS: INR 3.33 (0.85-1.17)
[2019-01-08 05:32] LABS: HEMATOCRIT 35.1 % (42.0-54.0); HEMOGLOBIN 11.7 g/dL (13.5-17.5); LYMPHOCYTES 17.6 % (15-50); MCH 28.3 pg (26.0-34.0); MCHC 33.3 g/dL (31.0-37.0); MCV 84.8 fL (80.0-100.0); MEAN PLATELET VOLUME 11.4 fL (7.4-10.4); NEUTROPHILS 66.2 % (40-80); PLATELET COUNT 246 10x3/uL (130-400); RBC 4.14 10x6/uL (4.20-6.10); WBC 7.3 10x3/uL (4.8-10.8)
[2019-01-08 05:43] LABS: ALBUMIN 2.3 g/dL (3.4-5.0); ANION GAP 15.3 mmol/L (8-16); BILIRUBIN - TOTAL 0.5 mg/dL (0.2-1.3); CALCIUM 8.4 mg/dL (8.5-10.1); CARBON DIOXIDE 26.9 mmol/L (21.0-32.0); POTASSIUM - SERUM 3.2 mmol/L (3.5-5.1); PROTEIN - SERUM 7.2 g/dL (6.4-8.2)
[2019-01-08 07:48] VITALS: BP 158/74
--- NOTE | 2019-01-08 10:29 | NUR ---
TELEMETRY SR. LENAX GTT DCD ORDERED. CALL LIGHT IN REACH. WILL MONITOR NEEDS.
[2019-01-08 11:20] VITALS: BP 118/46
--- NOTE | 2019-01-08 13:17 | NUR ---
Nutrition Follow Up: AHA diet with 100% intake of meals BM yesterday Weight 189lb Pt reports good appetite Pt reports he plans to start watching salt at home and understands the importance of this. Pt has no nutrition questions or requests at this time RD following
[2019-01-08 14:41] VITALS: BP 134/58
--- NOTE | 2019-01-08 20:00 | NUR ---
INITIAL ROUNDS AND ASSESSMENT COMPLETED. PT RESTING IN BED. IN GOOD SPIRITS. IN AND OUT OF ROOM. SHE IS CURRENTLY A PATIENT AND SON IS ON HIS WAY FROM [place] TO PICK HER UP. PT EXPRESSES WISHES THAT HE COULD JUST GO HOME WHEN GOES HOME. PT ALERT/PIV SALINE LOCKED TO RIGHT WRIST. O2 @ 4L/NC. NO DISTRESS. MONITOR AND CPOC.
[2019-01-08 21:48] VITALS: BP 143/64
--- NOTE | 2019-01-08 22:00 | NUR ---
PT'S HAS NOW BEEN DISCHARGED AND IS STAYING IN HER HUSBANDS ROOM UNTIL SON SHOWS UP TO GET HERE. BOTH ARE RESTING. NO NEEDS VOICED. SNACK PROVIDED TO PATIENT.
[2019-01-09 05:39] LABS: BASOPHILS 0.3 % (0-2); EOSINOPHILS 6.9 % (0-7); HEMATOCRIT 33.1 % (42.0-54.0); HEMOGLOBIN 10.9 g/dL (13.5-17.5); IMMATURE GRANULOCYTES 0.3 % (0-5); LYMPHOCYTES 23.4 % (15-50); MCH 27.9 pg (26.0-34.0); MCHC 32.9 g/dL (31.0-37.0); MCV 84.9 fL (80.0-100.0); MEAN PLATELET VOLUME 11.8 fL (7.4-10.4); MONOCYTES 11.5 % (2-11); NEUTROPHILS 57.6 % (40-80); PLATELET COUNT 264 10x3/uL (130-400); RDW 15.3 % (11.5-14.5); WBC 7.7 10x3/uL (4.8-10.8)
[2019-01-09 05:55] VITALS: BP 135/69
[2019-01-09 06:07] LABS: ALBUMIN 2.3 g/dL (3.4-5.0); ANION GAP 11.9 mmol/L (8-16); BILIRUBIN - TOTAL 0.29 mg/dL (0.2-1.3); CALCIUM 7.9 mg/dL (8.5-10.1); CREATININE - SERUM 2.9 mg/dL (0.6-1.3); POTASSIUM - SERUM 3.9 mmol/L (3.5-5.1)
[2019-01-09 06:10] LABS: INR 3.08 (0.85-1.17)
[2019-01-09 08:07] VITALS: BP 173/76
[2019-01-09] MEDS ORDERED: COUMADIN4 MG PO (11:19)
[2019-01-09] MEDS ORDERED: HYDRALAZINE HCL25 MG PO (11:20)
[2019-01-09 11:25] VITALS: BP 128/59
--- NOTE | 2019-01-09 13:09 | NUR ---
02 SAT 96% ON RA AT REST AND 97% ON RA AMBULATING. WILL CONT. PLAN OF CARE.
--- NOTE | 2019-01-09 13:21 | MORECARE ---
CASE MANAGEMENT DISCHARGE SUMMARY PATIENT: JESUS GIORDANO UNIT: [id number] ADM DATE: 01/03/19 AGE: 83 : 37 SEX: M ROOM/BED: D.2116 AUTHOR: NICANOR ERAZO PHYSICIAN: REFERRING PHYSICIAN: SHANNON ROBLES MD DATE OF SERVICE: 01/09/19 Discharge Plan Patient Name: JESUS GIORDANO Facility: [facility]:[place] : 1935 Planned Disposition: Home Anticipated Discharge Date: 01/09/19 Discharge Date: Expected LOS: 6 Initial Reviewer: [email or web address] Initial Review Date: 01/09/2019 Generated: 01/09/19 2:21 pm Coverage Notice Reviewer: [id number] Shanta Adhikari Notice Issued Date-Time: 01/09/2019 12:24 Notice Type: IM Discharge Notice Notice Delivered To: Patient Relationship to Patient: Raw Scales Operator Name: Delivery Method: HAND - Hand Delivered Dhara Days: Prior Verbal Notification: Recipient Understood Notice: Yes Recipient Signature: Yes Med Rec Note Co-signed by Attending: Coverage Notice Comment: Patient Name: JESUS GIORDANO Page 00049 at 1321 All edits/amendments must be made on the electronic document DICTATION DATE: 01/09/19 132 DIAL MAKER: PAKO 01/09/19 1320 RPT#: [id number] DC DATE: STATUS: ADM IN [facility] [address] [place] [address] END OF REPORT
--- NOTE | 2019-01-09 13:31 | MORECARE ---
CASE MANAGEMENT DISCHARGE SUMMARY PATIENT: JESUS GIORDANO UNIT: [id number] ADM DATE: 01/03/19 AGE: 83 : 37 SEX: M ROOM/BED: D[facility] AUTHOR: NICANOR ERAZO PHYSICIAN: REFERRING PHYSICIAN: SHANNON ROBLES MD DATE OF SERVICE: 01/09/19 Discharge Plan Patient Name: JESUS GIORDANO Facility: [facility]:[place] : 1935 Planned Disposition: Home Anticipated Discharge Date: 01/09/19 Discharge Date: Expected LOS: 6 Initial Reviewer: [id number] Initial Review Date: 01/09/2019 Generated: 01/09/19 2:31 pm DCPIA - Discharge Planning Initial Assessment Updated by LULA: Robin Adhikari on 01/09/19 1:21 pm * Is the patient Alert and Oriented? Yes * How many steps to enter\exit or inside your home? 0-0 / 8-I * PCP DR. SUSIE DELEON * Pharmacy [facility] * Preadmission Environment Home with Family * ADLs Independent * Equipment None * Other Equipment NO MEDICAL EQUIPMENT PROVIDER PREFERENCE * List name and contact numbers for known caregivers / representatives who currently or will assist patient after discharge: COLE WERNER, SPOUSE, * Verbal permission to speak to the caregivers and representatives has been obtained from the patient. N/A * Community resources currently utilized None * Please name any agencies selected above. NONE * Additional services required to return to the preadmission environment? No * Can the patient safely return to the preadmission environment? Yes * Has this patient been hospitalized within the prior 30 days at any hospital? Yes Coverage Notice Reviewer: [id number] - Robin Adhikari Notice Issued Date-Time: 01/09/2019 12:24 Notice Type: IM Discharge Notice Notice Delivered To: Patient Relationship to Patient: Medical Secretary Receptionist Name: Delivery Method: HAND - Hand Delivered Dhara Days: Prior Verbal Notification: Recipient Understood Notice: Yes Recipient Signature: Yes Med Rec Note Co-signed by Attending: Coverage Notice Comment: Last DP export: 01/09/19 12:21 p Patient Name: JESUS GIORDANO Page 76499 at 1331 All edits/amendments must be made on the electronic document DICTATION DATE: 01/09/191329 PIT HAND: PAKO 01/09/191329 RPT#: [id number] DC DATE: STATUS: ADM IN [facility] [address] [place] [address] END OF REPORT
--- NOTE | 2019-01-09 13:48 | MORECARE ---
CASE MANAGEMENT DISCHARGE SUMMARY PATIENT: JESUS GIORDANO UNIT: [id number] ADM DATE: 01/03/19 AGE: 83 : 37 SEX: M ROOM/BED: D.2116 AUTHOR: CASTRO,DOC PHYSICIAN: REFERRING PHYSICIAN: SHANNON ROBLES MD DATE OF SERVICE: 01/09/19 Discharge Plan Patient Name: JESUS GIORDANO Facility: [facility]:[place] : 1935 Planned Disposition: Home Anticipated Discharge Date: 01/09/19 Discharge Date: Expected LOS: 6 Initial Reviewer: [email or web address] Initial Review Date: 01/09/2019 Generated: 01/09/19 2:48 pm Comments DCP- Discharge Planning Updated by [email or web address]: Robin Adhikari on 01/09/19 12:[address] Patient Name: JESUS GIORDANO Admission Status: ER Accout number: [id number] Admission Date: 01-03-2019 : 1935 Admission Diagnosis:SHORTNESS OF BREATH Attending: SHANNON ROBLES Current LOS: 6 Anticipated DC Date: 01-09-2019 Planned Disposition: Home Primary Insurance: [facility] Discharge Planning Comments: CM MET WITH PT IN ROOM TO DISCUSS DISCHARGE PLANNING AND NEEDS. PT REPORTS LIVING AT HOME INDEPENDENTLY WITH SPOUSE. PT REPORTS HIS SON FROM [place] IS STAYING WITH HIM AND SPOUSE TO ASSIST NEEDED. PT HAS NO MEDICAL EQUIPMENT AND NO OUTSIDE SERVICES ASSISTING IN THE HOME. CM DISCUSSED AVAILABILITY OF HOME HEALTH, REHAB SERVICES AND MEDICAL EQUIPMENT. PT DENIES DISCHARGE NEEDS, REPORTS HIS SON WILL PICK HIM UP FOR DISCHARGE HOME. CM ENCOURAGED PT TO ACCEPT HOME HEALTH AND EDUCATED PT ON HOME HEALTH AND THAT IT MAY ASSIST WITH KEEPING PT FROM FREQUENT ADMISSIONS AND ENSURE PT IS DOING WELL AT HOME. PT DECLINES HOME HEALTH. IMPORTANT MESSAGE FROM MEDICARE PROVIDED AND EXPLAINED. TRACK LABORER NURSE NOTIFIED. Proof Coins Inspector: Robin Adhikari DCPIA - Discharge Planning Initial Assessment Updated by [email or web address]: Robin Adhikari on 01/09/19 1:21 pm * Is the patient Alert and Oriented? Yes * How many steps to enter\exit or inside your home? 0-0 / 8-I * PCP DR. SUSIE DELEON * Pharmacy [facility] * Preadmission Environment Home with Family * ADLs Independent * Equipment None * Other Equipment NO MEDICAL EQUIPMENT PROVIDER PREFERENCE * List name and contact numbers for known caregivers / representatives who currently or will assist patient after discharge: COLE WERNER, SPOUSE, * Verbal permission to speak to the caregivers and representatives has been obtained from the patient. N/A * Community resources currently utilized None * Please name any agencies selected above. NONE * Additional services required to return to the preadmission environment? No * Can the patient safely return to the preadmission environment? Yes * Has this patient been hospitalized within the prior 30 days at any hospital? Yes Coverage Notice Reviewer: [id number] Shanta Adhikari Notice Issued Date-Time: 01/09/2019 12:24 Notice Type: IM Discharge Notice Notice Delivered To: Patient Relationship to Patient: Lunch Truck Operator Name: Delivery Method: HAND - Hand Delivered Dhara Days: Prior Verbal Notification: Recipient Understood Notice: Yes Recipient Signature: Yes Med Rec Note Co-signed by Attending: Coverage Notice Comment: Last DP export: 01/09/19 12:31 p Patient Name: JESUS GIORDANO Page 89667 at 1348 All edits/amendments must be made on the electronic document DICTATION DATE: 01/09/19 1347 CHALKER SOLES: PAKO 01/09/19 1347 RPT#: [id number] DC DATE: STATUS: ADM IN [facility] [address] [place] [address] END OF REPORT
--- NOTE | 2019-01-09 13:57 | NUR ---
IV AND TELEMETRY DCD. DC PLANS GIVEN. UNDERSTANDING VOICED. ESCORTED TO CAR BY W/C.
== END 2019-01-09 13:58 | disposition home or self-care (01) | DRG 291 ==
LOC: D.ER 08:26 → D.M2 09:22
PROVIDERS: Emergency Medicine; Internal Medicine Cardiovascular Disease; Internal Medicine Nephrology; ADMIT Internal Medicine Nephrology; ATTEND Internal Medicine Nephrology
DX: I11.0 Hypertensive heart disease with heart failure (principal); I50.31 Acute diastolic (congestive) heart failure; N17.9 Acute kidney failure, unspecified; J98.11 Atelectasis; I24.0 Acute coronary thrombosis not resulting in myocardial infarction; I16.0 Hypertensive urgency; D64.9 Anemia, unspecified; E78.5 Hyperlipidemia, unspecified; I25.10 Atherosclerotic heart disease of native coronary artery without angina pectoris; I08.0 Rheumatic disorders of both mitral and aortic valves; E11.51 Type 2 diabetes mellitus with diabetic peripheral angiopathy without gangrene